=== PATIENT | female | born 1945 | race Caucasian/White ===

== ENCOUNTER → 2020-04-11 12:17 | Outpatient (CLI) | payer MEDICARE, BC, SELFPAY ==
--- NOTE | ~2020-04-11 | MM_ITS ---
EXAMINATION: MM screening [facility] BI w andi HISTORY: Screening mammogram TECHNIQUE: Craniocaudal and mediolateral oblique 3-D tomosynthesis images were obtained and synthetic 2-D images were generated. CAD analysis was submitted and interpreted. COMPARISON: 08/11/2017, 07/24/2014, 07/21/2013 BREAST PARENCHYMAL COMPOSITION: There are scattered areas of fibroglandular density. FINDINGS: There is no evidence of suspicious mass, calcification, or architectural distortion to sugg est malignancy in either breast. There has been no suspicious interval change. IMPRESSION: 1. No mammographic evidence of malignancy. 2. Recommend routine screening mammography in one year. BI-RADS Category 1: Negative Reviewed, dictated and finalized at location A. LING GRADER
== END ==
PROVIDERS: Visit Provider Internal Medicine
DX: Z12.31 Encounter for screening mammogram for malignant neoplasm of breast (principal)
CPT/HCPCS: 77063; 77067

== ENCOUNTER 2020-04-12 14:20 | Outpatient (CLI) | payer MEDICARE, BC, SELFPAY ==
--- NOTE | 2020-04-12 14:46 | ECHO_ITS ---
Patient Info Name: Kanchan Vuong Age: 74 years : 1945 Gender: Female Ht: 64 in Wt: 179 lbs BSA: 1.94 m2 HR: 61 bpm BP: 129 / 86 mmHg Heart Rhythm: Sinus Rhythm Technical Quality: Good Exam Date: 04/12/2020 3:15 PM Exam Location: [facility] Patient Status: Outpatient Admit Date: 04/12/2020 Staff Ordering Physician: Laura Mahoney NP Fine Chemicals Operator: Radha Castro RDCS Attending Provider: Laura Mahoney NP Referring Physician: Maru FAJARDO; Exam Type: CA echo doppler color flow Study Info Indications - dizziness Complete two-dimensional, color flow and Doppler transthoracic echocardiogram is performed. Summary 1. Complete two-dimensional, color flow and Doppler transthoracic echocardiogram is performed. 2. Left ventricular chamber dimension is normal. 3. Left ventricular systolic function is normal, estimated at 60-65%. 4. There is no increased left ventricular wall thickness. 5. Left ventricular septal wall motion is normal. 6. The left ventricular diastolic function is abnormal. 7. Right ventricular chamber dimension is mildly enlarged. 8. There is moderate aortic valve sclerosis. 9. The right coronary cusp is thickened with restricted leaflet mobility. 10. There is mild mitral valve regurgitation. 11. There is mild tricuspid valve regurgitation. 12. Mild pulmonary hypertension, estimated pulmonary arterial systolic pressure is 40 mmHg. Left Ventricle Left ventricular chamber dimension is normal. Left ventricular systolic function is normal, estimated at 60-65%. There is no increased left ventricular wall thickness. Left ventricular septal wall motion is normal. The left ventricular diastolic function is abnormal. Right Ventricle Right ventricular chamber dimension is mildly enlarged. Right ventricular systolic function is normal. Left Atria Left atrial chamber dimension is normal. Right Atria Right atrial chamber dimension is normal. Atrial Septum Suspected patent foramen ovale visualized by color flow imaging. Aortic Valve The aortic valve is trileaflet. There is moderate aortic valve sclerosis. There is no aortic valve stenosis. There is trace aortic valve regurgitation. The right coronary cusp is thickened with restricted leaflet mobility. Pulmonic Valve The pulmonic valve is normal. There is no pulmonic valve stenosis. There is trace pulmonic regurgitation. Mitral Valve The mitral valve has normal leaflets. There is no mitral valve stenosis. There is mild mitral valve regurgitation. Tricuspid Valve The tricuspid valve leaflets are normal. There is no significant tricuspid valve stenosis. There is mild tricuspid valve regurgitation. Mild pulmonary hypertension, estimated pulmonary arterial systolic pressure is 40 mmHg. Pericardium/Pleural The pericardium appears normal. There is no pericardial effusion. Inferior Vena Cava Normal inferior vena cava with >50% collapse upon inspiration consistent with normal right atrial pressure, 10 mmHg. Aorta The aortic root size at the sinus of Valsalva is normal. The prox ascending aorta size is normal. Left Ventricular Outflow Tract Name Value Normal LVOT 2D LVOT Diameter
== END 2020-04-12 14:21 | disposition home or self-care (01) ==
LOC: ANHCARD 14:21
PROVIDERS: PCP Internal Medicine; Visit Provider Nurse Practitioner
DX: R42 Dizziness and giddiness (principal); I08.3 Combined rheumatic disorders of mitral, aortic and tricuspid valves
CPT/HCPCS: 93306

== ENCOUNTER 2020-05-21 08:34 | Outpatient (CLI) | payer MEDICARE, BC, SELFPAY ==
--- NOTE | 2020-06-16 20:46 | WPDHOMESLEEP ---
Sleep Study - Home Unattended Date of Study: 05/21/20 Ordering Provider: Earl Muro MD Interpreting Provider: Julissa Brooks MD Home Sleep Study Type: Apnea Link Air Height: 1.63 m Weight: 81.193 kg Body Mass Index: 30.7 Neck Circumference (inches): 12 [place]: 3 Reason for Sleep Study Diagnosed with obstructive sleep apnea 10 years ago, lost 100 lb and symptoms improved Sleep History Kanchan Vuong is a 75-year-old woman who was diagnosed with sleep apnea about 10 years ago. She lost 100 lb after gastric bypass, and the weight loss led to resolution of her sleep complaints. She occasionally snores, only rarely is at loud enough that others complain about it. She never awakens at night with heartburn, belching or coughing. She never awakens from sleep feeling short of breath. She rarely has trouble sleeping with a cold. She does not wake up gasping for breath at night, does not have breathing problems at night observed by others and does not sweat excessively at night. She occasionally notices her heart pounding or beating irregularly at night. She does not fall asleep during the day, does not fall asleep involuntarily and does not fall asleep while driving. She does not fall asleep while exerting physical effort. She does not have loss of muscle tone was strong emotion. She does not have daytime difficulties due to excessive sleepiness. She is retired. She does not feel paralyzed on waking or falling asleep, does not have vivid dreamlike scenes upon awakening or falling asleep. She is not afraid to go to sleep. She does not have nightmares. She rarely remembers her dreams. She occasionally has racing thoughts. She rarely feels sad or depressed. Frequently has anxiety. Rarely has muscular tension. Rarely notices parts of her body jerking. She does not kick at night although she frequently has crawling and aching feelings in her legs at night. She constantly has leg pains at night. She does not have morning jaw pain. She does not grind her teeth during sleep. She occasionally has bothered by pain during the day. She frequently is awakened by pain at night. She rarely wakes up feeling stiff in the morning with sore achy muscles and rarely has pain in the neck and spine. She has dizziness and concentration difficulties. Normal bedtime is Between 11:00 p.m. and 12 midnight, falling asleep within 15-30 minutes, typically waking 1-3 times at night to use the bathroom. She stays awake for 10-15 minutes. She wakes in the morning at 6:30 a.m.. Weekend schedule is the same. She does not take naps. A short nap is not refreshing. She frequently awakens feeling refreshed. She rarely has a morning headache. She rarely has daytime sleepiness or problems with memory and concentration. Habits: She quit tobacco 34 years ago. Caffeine 3-4 sodas a day. No alcohol or recreational drugs. FORMERLY [facility] Past Medical History Medical History (Updated 06/16/20 @ 20:59 by Julissa Brooks MD) Aortic valve sclerosis Cataract Elevated liver enzymes Gout HTN (hypertension) Hypothyroidism Measles Mumps Osteoarthritis Vitamin D deficiency Surgical History Surgical History (Updated 06/16/20 @ 20:54 by Julissa Brooks MD) H/O cataract extraction History of gastric bypass History of tonsillectomy Family History Family History Mother Family history of lung cancer Hypertension Congestive heart failure Father Coronary artery disease Emphysema lung Social History Social History Smoking status: Former smoker Smoking end date: 04/27/85 Alcohol intake: never Medications Home Medications Medication Instructions Recorded Confirmed Type calcium carbonate 600 mg calcium 600 mg PO DAILY 01/09/20 02/02/20 History (1,500 mg) tablet cholecalciferol (vitamin D3) 25 25 mcg PO DAILY 01/09/20 02/02/20 History
[2020-06-16 21:09] VITALS: BMI 30.7
== END 2020-05-21 08:35 | disposition home or self-care (01) ==
LOC: ANHCSM 08:36
PROVIDERS: Visit Provider Internal Medicine Cardiovascular Disease
DX: G47.33 Obstructive sleep apnea (adult) (pediatric) (principal)
CPT/HCPCS: 95806

== ENCOUNTER 2020-08-06 09:28 | Outpatient (CLI) | payer MEDICARE, BC, SELFPAY ==
--- NOTE | ~2020-08-06 | US_ITS ---
EXAMINATION: US venous doppler LE RT EXAM DATE: 08/06/2020 09:58 INDICATION: Right knee pain. TECHNIQUE: Multiple grayscale, color flow and Doppler images of the right lower extremity deep venous system were obtained and reviewed. There is no prior study for comparison. FINDINGS: The right common femoral, femoral and profunda veins demonstrate normal color flow, respira tory variation, augmentation and compressibility. Compressibility, color flow confirmed within the r ight popliteal, posterior tibial, peroneal, and greater saphenous veins. IMPRESSION: 1. No right lower extremity deep venous thrombosis. Reviewed, dictated and finalized at location A.
== END 2020-08-06 09:29 | disposition home or self-care (01) ==
LOC: ANHIMG 09:30
PROVIDERS: PCP Internal Medicine; Visit Provider Nurse Practitioner
DX: R22.41 Localized swelling, mass and lump, right lower limb (principal); M25.569 Pain in unspecified knee
CPT/HCPCS: 93971

== ENCOUNTER 2021-04-25 14:16 | Emergency (ER) | payer MEDICARE, BC, SELFPAY ==
--- NOTE | ~2021-04-25 | XR_ITS ---
EXAMINATION: XR chest 2V DATE: 04/25/2021 15:36 INDICATION: Cough. TECHNIQUE: Frontal and lateral views of the chest were obtained. COMPARISON: Chest 2 views 02/13/2017 FINDINGS: Calcified lung nodules and calcified hilar and mediastinal lymph nodes are consistent with old granulomatous disease. No pleural effusion or pneumothorax. The heart size is normal. Surgical cl ips in the right upper quadrant are likely from cholecystectomy. IMPRESSION: 1. No acute cardiopulmonary disease. Reviewed, dictated and finalized at location B. OL CURRICULUM DEVELOPER
[2021-04-25 14:47] VITALS: BP 121/53; PULSE 91; RESP 20; TEMP 37.3; O2SAT 99
--- NOTE | 2021-04-25 16:11 | ED.URI ---
HPI - URI/Sore Throat General Chief Complaint: Upper Respiratory Infection Stated Complaint: cough,light headed,dizziness,sob Time Seen by Provider: 04/25/21 16:10 Source: patient and RN notes reviewed Mode of arrival: ambulatory Limitations: no limitations History of Present Illness HPI Narrative: 75-year-old female presents concern for cough, headache, chills, general malaise that started 2 days ago. She reports she is vaccinated for Covid and flu and also has a Covid booster. Reports has been using NyQuil. Shedenies leg swelling, chest pain, shortness of breath, palpitations. Reports nausea. Denies vomiting, diarrhea. MD elicited complaint: cough Related Data Home Medications Medication Instructions Recorded Confirmed calcium carbonate 600 mg calcium 600 mg PO DAILY 01/09/20 04/25/21 (1,500 mg) tablet cholecalciferol (vitamin D3) 25 25 mcg PO DAILY 01/09/20 04/25/21 mcg (1,000 unit) capsule multivitamin 1 tablet PO DAILY 01/09/20 04/25/21 Allergies Allergy/AdvReac Type Severity Reaction Status Date / Time No Known Allergies Allergy Verified 04/25/21 15:30 Review of Systems Review of Systems: CONSTITUTIONAL: Reports malaise, chills. Sweats, or fever. EYES: Denies visual changes, redness, or discharge. ENT: Denies rhinorrhea, congestion, sinus pain, otalgia and sore throat. CARDIOVASCULAR: Denies chest pain, palpitations, or edema. RESPIRATORY: Reports cough. Denies dyspnea. GASTROINTESTINAL: Denies abdominal pain, nausea, vomiting, diarrhea SKIN: Denies rash or itching. MUSCULOSKELETAL: Reports myalgia. NEUROLOGIC: Reports headache. All systems reviewed & are unremarkable except as noted in HPI and below [facility] Past Medical History Medical History Aortic valve sclerosis Cataract Elevated liver enzymes Gout HTN (hypertension) Hypothyroidism Measles Mumps Osteoarthritis Vitamin D deficiency Surgical History Surgical History Gall bladder stones H/O cataract extraction History of appendectomy History of gastric bypass History of hysterectomy History of tonsillectomy Parotid tumor Family History Family History Mother Family history of lung cancer Hypertension Congestive heart failure Father Coronary artery disease Emphysema lung Social History Social History Smoking packs per day: 1 Smoking cigarettes per day: 20.0 Years smoked: 20 Smoking pack-years: 20.00 Smoking status: Former smoker Smoking end date: 04/27/85 Alcohol intake: never Comments At time of signature, agree with nursing past medical, surgical, social and family history. There is no relevant family history pertinent to the presenting complaint Exam Narrative: GENERAL: Well-appearing, well-nourished, and in no acute distress. HEAD: Normocephalic EYES: PERRLA, conjunctivae clear ENT: Nares clear, clear discharge. Mucous membranes moist. TM pearly carroll with sharp light reflex bilaterally; no tragal tenderness. Oropharynx not erythematous without lesions. Tonsils not enlarged and without exudate, no drooling, no hoarseness, no trismus, uvula midline. NECK: Supple. No lymphadenopathy CHEST: Left lower lobe rhonchi, otherwise clear to auscultation, breath sounds equal. No wheezing, rales, or stridor. No respiratory distress, speaks in full sentences. HEART: Regular rate and rhythm. No murmur heard. SKIN: Warm, dry, no rash. NEURO: Alert and oriented x3. PSYCH: Normal mood and affect Course Course Emergency Course: Patient is aware of diagnosis, understands and agrees to treatment plan. Anticipatory guidance given. Patient agrees to follow-up as directed and is aware of reasons to seek care at the emergency department. Portions of this record may have been created with voice recognition so
== END 2021-04-25 16:45 | disposition home or self-care (01) ==
PROVIDERS: Emergency Provider Nurse Practitioner; PCP Internal Medicine
DX: J06.9 Acute upper respiratory infection, unspecified (principal); Z20.822 Contact with and (suspected) exposure to COVID-19; Z87.891 Personal history of nicotine dependence; I35.8 Other nonrheumatic aortic valve disorders; Z98.49 Cataract extraction status, unspecified eye; M10.9 Gout, unspecified; I10 Essential (primary) hypertension; E03.9 Hypothyroidism, unspecified; M19.90 Unspecified osteoarthritis, unspecified site; E55.9 Vitamin D deficiency, unspecified; Z98.84 Bariatric surgery status
CPT/HCPCS: 71046; 87426; 99213; C9803; G0463

== ENCOUNTER → 2021-05-02 12:20 | Outpatient (CLI) | payer MEDICARE, BC, SELFPAY ==
--- NOTE | ~2021-05-02 | MM_ITS ---
EXAMINATION: MM screening [facility] BI w andi HISTORY: Screening mammogram TECHNIQUE: Craniocaudal and mediolateral oblique 3-D tomosynthesis images were obtained and synthetic 2-D images were generated. CAD analysis was submitted and interpreted. COMPARISON: 04/11/2020 08/11/2017, 07/24/2014 BREAST PARENCHYMAL COMPOSITION: There are scattered areas of fibroglandular density. FINDINGS: There is no evidence of suspicious mass, calcification, or architectural distortion to sugg est malignancy in either breast. There has been no suspicious interval change. IMPRESSION: 1. No mammographic evidence of malignancy. 2. Recommend routine screening mammography in one year. BI-RADS Category 1: Negative Reviewed, dictated and finalized at location A. E TRIAGE SPECIALIST
== END ==
PROVIDERS: PCP Internal Medicine; Visit Provider Internal Medicine
DX: Z12.31 Encounter for screening mammogram for malignant neoplasm of breast (principal)
CPT/HCPCS: 77063; 77067

== ENCOUNTER 2022-01-31 18:34 | Emergency (ER) | payer BC, MEDICARE, SELFPAY ==
--- NOTE | ~2022-01-31 | XR_ITS ---
EXAMINATION: XR chest 2V 01/31/2022 19:20 INDICATION: Productive cough PROCEDURE: 2 view chest COMPARISON: 04/25/2021 FINDINGS: The lungs are clear. The cardiomediastinal silhouette is within normal limits. There are no pleural effusions. There is no pneumothorax suspected. IMPRESSION: 1: NO ACUTE CARDIOPULMONARY DISEASE. Reviewed, dictated and finalized at location A.
[2022-01-31 18:46] VITALS: BP 139/74; PULSE 108; RESP 16; TEMP 38.6; O2SAT 96
--- NOTE | 2022-01-31 19:04 | ED.URI ---
HPI - URI/Sore Throat General Chief Complaint: Upper Respiratory Infection Stated Complaint: Cough, SOB Time Seen by Provider: 01/31/22 19:04 Source: patient and RN notes reviewed Mode of arrival: ambulatory Limitations: no limitations History of Present Illness HPI Narrative: 76-year-old female presents to the [facility] with complaints of cough and shortness of breath days. Reports a chest cold, body aches and fatigue. Also reports left ear pain. Had taken some DayQuil today. Where she had a fever. Patient appears acutely ill Related Data Home Medications Medication Instructions Recorded Confirmed calcium carbonate 600 mg calcium 600 mg PO DAILY 01/09/20 09/13/21 (1,500 mg) tablet (Calcium) cholecalciferol (vitamin D3) 25 25 mcg PO DAILY 01/09/20 09/13/21 mcg (1,000 unit) capsule multivitamin 1 tablet PO DAILY 01/09/20 09/13/21 levothyroxine 75 mcg tablet 75 mcg PO DAILY 09/04/21 09/13/21 (Synthroid) Allergies Allergy/AdvReac Type Severity Reaction Status Date / Time No Known Allergies Allergy Verified 04/25/21 15:30 Review of Systems Review of Systems: All systems reviewed & are unremarkable except as noted in HPI and below Constitutional: Constitutional: Reports as per HPI, Denies chills, Reports fatigue and Denies fever(s) Eyes: Eyes: Reports no additional eye complaints ENT: Reports as per HPI (Left ear pain) Cardiovascular: Cardiovascular: Reports no additional cardiovascular complaints Respiratory: Respiratory: Reports as per HPI, Reports chest congestion, Reports cough and Reports dyspnea Gastrointestinal: Gastrointestinal: Reports no additional gastrointestinal complaints Musculoskeletal: Musculoskeletal: Reports no additional musculoskeletal complaints Integumentary/Breasts: Skin/Breast: Reports system reviewed and no additional complaints, except as docu Neurologic: Reports system reviewed and no additional complaints, except as documented Psychiatric: Psychiatric: Reports no additional psychiatric complaints Allergic/Immunologic: Allergic/Immunologic: Reports no additional allergic/immunologic complaints [facility] Past Medical History Medical History Aortic valve sclerosis Cataract Elevated liver enzymes Gout HTN (hypertension) Hypothyroidism Measles Mumps Osteoarthritis Vitamin D deficiency Surgical History Surgical History Gall bladder stones H/O cataract extraction History of appendectomy History of gastric bypass History of hysterectomy History of tonsillectomy Parotid tumor Family History Family History Mother Family history of lung cancer Hypertension Congestive heart failure Father Coronary artery disease Emphysema lung Social History Social History Smoking packs per day: 1 Smoking cigarettes per day: 20.0 Years smoked: 20 Smoking pack-years: 20.00 Smoking status: Never smoker Smoking end date: 04/27/85 Alcohol intake: never Comments At the time of my signature, I reviewed and agree with the nursing past medical, surgical, social, and family history. There is no relevant family history pertinent to the patient complaint. Exam Const: General: no acute distress, alert, ill appearing acutely (mild) and well nourished Nutritional Appearance: well nourished Orientation/consciousness: patient oriented x3 Limitations: no limitations HENMT: Head: normal to inspection Ears: external ears normal, TM's normal bilaterally and EAC's normal Face/Nose/Sinus: Normal external nose present and Normal nares present Eyes: General: appearance normal, both eyes and all related structures Pupils: Equal, round and reactive pupils present Neck: Neck: normal visual inspection, no lymphadenopathy and no meningeal signs Chest: Chest
[2022-01-31 19:19] VITALS: TEMP 38.3
[2022-01-31] MEDS: ACETAMINOPHEN 500 MG TABLET 1000 MG PO (19:19)
--- NOTE | 2022-01-31 19:45 | PC.NURSE ---
Recheck 100.0 92-20 [id number]
--- NOTE | 2022-01-31 19:49 | ECG_ITS ---
Measurements Intervals [place] Rate: 93 P: 74 W[place]: 162 QRS: 72 QRSD: 137 T: 43 QT: 361 QTc: 451 Interpretive Statements SINUS RHYTHM RIGHT BUNDLE BRANCH BLOCK [120+ ms QRS DURATION, UPRIGHT V1, 40+ ms S IN I/aVL/V4/V5/V6] ABNORMAL ECG NO PREVIOUS ECG AVAILABLE FOR COMPARISON Electronically Signed On 02-01-2022 7:55:29 CDT by Yahir Figueroa M.D.
--- NOTE | 2022-01-31 19:53 | PC.NURSE ---
EKG was done at 1925
== END 2022-01-31 19:55 | disposition home or self-care (01) ==
PROVIDERS: Emergency Provider Nurse Practitioner; PCP Internal Medicine
DX: J06.9 Acute upper respiratory infection, unspecified (principal); J20.9 Acute bronchitis, unspecified; Z98.49 Cataract extraction status, unspecified eye; Z20.822 Contact with and (suspected) exposure to COVID-19; I45.10 Unspecified right bundle-branch block; F17.210 Nicotine dependence, cigarettes, uncomplicated; I10 Essential (primary) hypertension; E03.9 Hypothyroidism, unspecified; M19.90 Unspecified osteoarthritis, unspecified site; E55.9 Vitamin D deficiency, unspecified; M10.9 Gout, unspecified; I35.0 Nonrheumatic aortic (valve) stenosis; Z98.84 Bariatric surgery status
CPT/HCPCS: 71046; 87426; 87804; 93005; 99213; A9270; C9803; G0463

== ENCOUNTER 2022-02-21 12:35 | Emergency (ER) | payer BC, MEDICARE, SELFPAY ==
[2022-02-21 12:41] VITALS: BP 126/58; PULSE 85; RESP 14; TEMP 36.3; O2SAT 99
[2022-02-21 13:34] LABS: Basophils Percent Auto 0.6 % (0.2-1.2); Eosinophils Absolute Auto 0.1 K/mm3 (0-0.3); Eosinophils Percent Auto 2.5 % (0-4.4); Immature Granulocyte Absolute 0.01 K/mm3 (0.00-0.031); Immature Granulocyte Percent A 0.2 % (0-0.5); Lymphocytes Absolute Auto 1.63 K/mm3 (0.9-3.2); Lymphocytes Percent Auto 33.8 % (18.3-44.2); Mean Corpuscular HGB Conc 31.7 g/dl (32-36); Mean Corpuscular Hemoglobin 29.2 pg (26-34); Mean Corpuscular Volume 92.1 fl (80-100); Mean Platelet Volume 9.2 fl (7.4-10.4); Monocytes Absolute Auto 0.5 K/mm3 (0.1-0.6); Monocytes Percent Auto 10.4 % (2.6-8.5); Neutrophils Absolute Auto 2.5 K/mm3 (1.3-6.7); Neutrophils Percent Auto 52.5 % (45.5-73.1); Platelet Count Result 262 k/mm3 (150-375); Red Blood Count 4.45 M/mm3 (4.2-5.4); Red Cell Distribution Width 13.8 % (11.5-14.5); White Blood Count 4.8 K/mm3 (4.5-10.0)
[2022-02-21 13:40] LABS: Appearance Urine Clear (Clear); Bilirubin Urine 1+ (Negative); Blood Urine Negative (Negative); Color Urine Yellow (Yellow); Glucose Urine UA Negative (Negative); Ketones Urine Trace mg/dL (Negative); Leukocyte Esterase Ur Negative LEU/UL (Negative); Nitrate Urine Negative (Negative); Protein Urine 1+ mg/dL (Negative); Specific Grav Ur 1.025 (1.001-1.035); Urobilinogen Urine 0.2 mg/dL (<2.0); pH Urine 5.5 (5.0-9.0)
[2022-02-21 13:49] LABS: Alanine Aminotransferase 15 U/L (6-35); Alkaline Phosphatase 79 U/L (38-126); Anion Gap 14 mmol/L (8-16); Aspartate Amino Transferase 19 U/L (14-36); Bilirubin,Total 0.6 mg/dL (0.2-1.3); Blood Urea Nitrogen 24 mg/dL (7-17); Calcium 9.3 mg/dL (8.4-10.2); Carbon Dioxide 22 mmol/L (22-30); Chloride 105 mmol/L (98-107); Estimated CRCL calculation 33 ml/min; Estimated Glomerular Filt Rate 44; Glucose 91 mg/dL (65-110); Lipase 61 U/L (23-300); Potassium 3.2 mmol/L (3.4-5.0); Sodium 141 mmol/L (137-145)
[2022-02-21] MEDS: SODIUM CHLORIDE 0.9% IV 1,000 ML 999 ML IV CONT (14:57)
--- NOTE | 2022-02-21 15:28 | ED.NAVMDI ---
HPI - Nausea/Vomiting/Diarrhea General Chief complaint: Nausea/Vomiting/Diarrhea Stated complaint: diarrhea since thursday, Time Seen by Provider: 02/21/22 14:11 History of Present Illness HPI Narrative: Patient is a 76-year-old female who presents ER with concerns for dehydration. 3 days ago she was having nausea and vomiting as well as diarrhea. She was going to bathroom every 15 minutes. She was having evacuation of yellow contents. She did not see solid body ways. She began drinking yesterday and started having some clear stool and had some food which created some normal appearing stools as well. She reports she started to get dizzy with going from sitting to standing today and her doctor recommended she come be evaluated. She reports her illness is significantly improved. She has no localizing abdominal pain. No history of diverticulitis. Related Data Home Medications Medication Instructions Recorded Confirmed calcium carbonate 600 mg calcium 600 mg PO DAILY 01/09/20 09/13/21 (1,500 mg) tablet (Calcium) cholecalciferol (vitamin D3) 25 25 mcg PO DAILY 01/09/20 09/13/21 mcg (1,000 unit) capsule multivitamin 1 tablet PO DAILY 01/09/20 09/13/21 levothyroxine 75 mcg tablet 75 mcg PO DAILY 09/04/21 09/13/21 (Synthroid) Allergies Allergy/AdvReac Type Severity Reaction Status Date / Time No Known Allergies Allergy Verified 02/21/22 15:02 Review of Systems Review of Systems: All systems reviewed & are unremarkable except as noted in HPI and below Constitutional: Constitutional: Denies chills, Denies fatigue and Denies fever(s) ENT: Denies nasal congestion and Denies sore throat Cardiovascular: Cardiovascular: Denies chest pain and Denies radiating jaw, neck or arm pain Respiratory: Respiratory: Denies cough, Denies dyspnea and Denies wheezing Gastrointestinal: Gastrointestinal: Denies abdominal pain, Reports diarrhea, Reports nausea and Reports vomiting Genitourinary: Genitourinary: Denies nocturia and Denies dysuria [facility] Past Medical History Medical History Aortic valve sclerosis Cataract Elevated liver enzymes Gout HTN (hypertension) Hypothyroidism Measles Mumps Osteoarthritis Vitamin D deficiency Surgical History Surgical History Gall bladder stones H/O cataract extraction History of appendectomy History of gastric bypass History of hysterectomy History of tonsillectomy Parotid tumor Family History Family History Mother Family history of lung cancer Hypertension Congestive heart failure Father Coronary artery disease Emphysema lung Social History Social History Smoking packs per day: 1 Smoking cigarettes per day: 20.0 Years smoked: 20 Smoking pack-years: 20.00 Smoking status: Never smoker Smoking end date: 04/27/85 Alcohol intake: never Exam Narrative: GENERAL: Well-appearing, well-nourished, and in no acute distress. HEAD: Normocephalic, atraumatic. EYES: PERRL and EOMI. ENT: Mucous membranes moist. CHEST: Clear to auscultation. No respiratory distress. HEART: Regular rate and rhythm. Normal peripheral pulses. ABDOMEN: Soft, nontender, nondistended. EXTREMITIES: Normal range of motion. No edema. SKIN: Warm, dry, no rash. NEURO: Alert and oriented x3. PSYCH: Normal mood and affect. Course Course Emergency Course: Resting comfortably. Hydrated. Discharge home. Vital Signs Vital signs: Vital Signs Temperature 97.3 F L 02/21/22 12:41 Pulse Rate 85 02/21/22 12:41 Respiratory Rate 14 02/21/22 12:41 Blood Pressure 126/58 L 02/21/22 12:41 Pulse Oximetry 99 02/21/22 12:41 Oxygen Delivery Room Air 02/21/22 12:41 Temperature 97.3 F L 02/21/22 12:41 Pulse Rate 85 02/21/22 12:41 Respiratory Rate 14 1
[2022-02-21 15:43] LABS: Calcium Oxalate Crystals Urine Many /hpf; Mucus Urine Few /lpf; RBC Urine 51-75 /hpf (0-2); Squamous Epithelial Cell Urine Occasional /hpf (Few)
[2022-02-21 15:49] LABS: Add Urine Microscopic? YES
[2022-02-21 16:24] VITALS: BP 127/77; PULSE 77; RESP 16; TEMP 36.7; O2SAT 98
== END 2022-02-21 16:38 | disposition home or self-care (01) ==
PROVIDERS: Emergency Medicine; Emergency Provider Emergency Medicine; PCP Internal Medicine
DX: E86.0 Dehydration (principal); I10 Essential (primary) hypertension; E03.9 Hypothyroidism, unspecified; F17.210 Nicotine dependence, cigarettes, uncomplicated
CPT/HCPCS: 36415; 80053; 81001; 83690; 85025; 87086; 96360; 99283; J7030

== ENCOUNTER → 2022-07-16 14:02 | Outpatient (CLI) | payer MEDICARE, BC, SELFPAY ==
--- NOTE | ~2022-07-16 | MM_ITS ---
EXAMINATION: MM screening [facility] BI w andi HISTORY: Screening TECHNIQUE: Craniocaudal and mediolateral oblique 3-D tomosynthesis images were obtained and synthetic 2-D images were generated. CAD analysis was submitted and interpreted. COMPARISON: Comparison to multiple prior studies sequentially, with oldest reviewed study dated 07/21. BREAST PARENCHYMAL COMPOSITION: There are scattered areas of fibroglandular density. FINDINGS: There is no evidence of suspicious mass, calcification, or architectural distortion to sugg est malignancy in either breast. There has been no suspicious interval change. IMPRESSION: 1. No mammographic evidence of malignancy. 2. Recommend routine screening mammography in one year. BI-RADS Category 1: Negative Reviewed, dictated and finalized at location A.
== END ==
PROVIDERS: PCP Internal Medicine; Visit Provider Internal Medicine
DX: Z12.31 Encounter for screening mammogram for malignant neoplasm of breast (principal)
CPT/HCPCS: 77063; 77067

== ENCOUNTER 2022-11-05 08:01 | Outpatient (CLI) | payer MEDICARE, BC, SELFPAY ==
--- NOTE | ~2022-11-05 | MM_ITS ---
EXAMINATION: MM diagnostic [facility] RT w andi HISTORY: Recent right breast pain, currently resolved TECHNIQUE: ML, MLO and CC 3-D tomosynthesis images of the right breast were performed and synthetic 2 -D images were generated. CAD analysis was submitted and interpreted. COMPARISON: 07/16/2022, 05/02/2021, 04/11/2000bilateral screening mammogram examinations BREAST PARENCHYMAL COMPOSITION: There are scattered areas of fibroglandular density. FINDINGS: No suspicious mass or architectural distortion, malignant calcification, skin thickening or retraction or significant new or developing density is detected. IMPRESSION: 1. No mammographic evidence of malignancy 2. Routine mammographic screening is recommended BI-RADS Category 1: Negative Reviewed, dictated and finalized at location A.
== END 2022-11-05 08:02 ==
LOC: MICIMG 08:02
PROVIDERS: PCP Nurse Practitioner Obstetrics & Gynecology; Visit Provider Nurse Practitioner Obstetrics & Gynecology
DX: N64.4 Mastodynia (principal)
CPT/HCPCS: 77061; 77065; G0279

== ENCOUNTER → 2023-02-10 08:11 | Outpatient (CLI) | payer MEDICARE, BC, SELFPAY ==
--- NOTE | ~2023-02-10 | CT_ITS ---
EXAMINATION: CT foot LT wo con DATE: 02/10/2023 08:30 INDICATION: Closed fracture of the medial cuneiform of the left foot. TECHNIQUE: High resolution computed tomography (CT) of the left foot was performed without intravenou s contrast. Additional sagittal and coronal reconstructions were performed. Automated exposure contro l and iterative reconstruction technique were employed. The dose-length product was 160.74 mGy-cm. COMPARISON: None FINDINGS: Nondisplaced avulsion fracture along the lateral margin of the anterior process of the calcaneus. No other definitive fractures identified. Alignment remains essentially anatomic. Mild polyarticular ost eoarthritis at the left foot and ankle most prominent at the first metatarsophalangeal and interphala ngeal joints and at the ankle and medial naviculocuneiform articulations with mild subarticular cystl shanique change at the medial rim of the talar dome and proximal articular surface of the medial cuneiform . No ankle joint effusion. Achilles tendinosis with large enthesophyte at its calcaneal insertion. Sm all plantar calcaneal spur. IMPRESSION: 1. Nondisplaced small avulsion fracture along the lateral margin of the anterior process of the calca neus. 2. No other fractures identified. If there is continued clinical concern for a cuneiform fracture and this would alter clinical management could consider further more sensitive evaluation with MRI. 3. 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 Reviewed, dictated and finalized at location A. IMPRESSION: 1. Nondisplaced small avulsion fracture along the lateral margin of the anterio r process of the calcaneus. 2. No other fractures identified. If there is continued clinical concern for a cuneiform fracture and this would alter clinical management could consider furt her more sensitive evaluation with MRI. 3. 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
== END ==
PROVIDERS: PCP Podiatrist Foot & Ankle Surgery; Visit Provider Podiatrist Foot & Ankle Surgery
DX: S92.245A Nondisplaced fracture of medial cuneiform of left foot, initial encounter for closed fracture (principal); X58.XXXA Exposure to other specified factors, initial encounter
CPT/HCPCS: 73700

== ENCOUNTER 2023-07-28 14:56 | Outpatient (CLI) | payer MEDICARE, BC, SELFPAY ==
--- NOTE | ~2023-07-28 | MM_ITS ---
EXAMINATION: MM screening jia BI w andi HISTORY: Screening TECHNIQUE: Craniocaudal and mediolateral oblique 3-D tomosynthesis images were obtained and synthetic 2-D images were generated. CAD analysis was submitted and interpreted. COMPARISON: Comparison to multiple prior studies sequentially, with oldest reviewed study dated 07/24. BREAST PARENCHYMAL COMPOSITION: There are scattered areas of fibroglandular density. FINDINGS: There is no evidence of suspicious mass, calcification, or architectural distortion to sugg est malignancy in either breast. There has been no suspicious interval change. IMPRESSION: 1. No mammographic evidence of malignancy. 2. Recommend routine screening mammography in one year. BI-RADS Category 1: Negative Reviewed, dictated and finalized at location A.
== END 2023-07-28 14:57 ==
LOC: MICIMG 14:58
PROVIDERS: PCP Nurse Practitioner; Visit Provider Nurse Practitioner
DX: Z12.31 Encounter for screening mammogram for malignant neoplasm of breast (principal)
CPT/HCPCS: 77063; 77067

== ENCOUNTER 2023-09-19 08:26 | Emergency (ER) | payer MEDICARE, BC, SELFPAY ==
--- NOTE | 2023-09-19 08:27 | ED.GENADULT ---
HPI - General Adult General Chief complaint: Upper Respiratory Infection Stated complaint: SOB/Cough/UTI Time Seen by Provider: 09/19/23 08:47 Source: patient, RN notes reviewed and old records reviewed Mode of arrival: ambulatory Limitations: no limitations History of Present Illness HPI narrative: 78-year-old female presents to the [facility] with complaints 2 day history of headache, chest tightness, chest heaviness, cough and shortness of breath. Patient states that started on , has been laying in bed. Also concerned that she has had decreased urine output as well as dark urine and foul-smelling. Denies any abdominal pain. Does report a low-grade fever Has a history hypertension, right bundle branch block, gastric bypass, gout, hypothyroidism Onset (ago): day(s) (2) Related Data Home Medications Medication Instructions Recorded Confirmed calcium carbonate (Calcium 600) 600 mg PO DAILY 01/09/20 09/19/23 multivitamin 1 tablet PO DAILY 01/09/20 09/19/23 cholecalciferol (vitamin D3) 50 50 mcg PO DAILY 08/18/23 09/19/23 mcg (2,000 unit) capsule Allergies Allergy/AdvReac Type Severity Reaction Status Date / Time No Known Allergies Allergy Verified 09/19/23 08:30 Review of Systems Review of Systems: All systems reviewed & are unremarkable except as noted in HPI and below Constitutional: Constitutional: Reports as per HPI, Reports fatigue, Reports fever(s) (Reports low-grade) and Reports lethargy Eyes: Eyes: Reports no additional eye complaints ENT: Reports system reviewed and no additional complaints, except as documented Cardiovascular: Cardiovascular: Reports as per HPI, Reports chest pain (Heaviness and tightness), Denies leg edema and Reports dyspnea Respiratory: Respiratory: Denies chest congestion, Denies cough and Reports dyspnea Gastrointestinal: Gastrointestinal: Reports no additional gastrointestinal complaints, Denies abdominal pain, Denies nausea and Denies vomiting Genitourinary: Genitourinary: Reports as per HPI Musculoskeletal: Musculoskeletal: Reports no additional musculoskeletal complaints Integumentary/Breasts: Skin/Breast: Reports system reviewed and no additional complaints, except as docu Neurologic: Reports system reviewed and no additional complaints, except as documented Psychiatric: Psychiatric: Reports no additional psychiatric complaints Allergic/Immunologic: Allergic/Immunologic: Reports no additional allergic/immunologic complaints PMFSH Past Medical History Medical History Aortic valve sclerosis Cataract Elevated liver enzymes Gout HTN (hypertension) Hypothyroidism Measles Mumps Osteoarthritis Vitamin D deficiency Surgical History Surgical History Gall bladder stones H/O cataract extraction History of appendectomy History of gastric bypass History of hysterectomy History of tonsillectomy Parotid tumor Family History Family History Mother Family history of lung cancer Hypertension Congestive heart failure Father Coronary artery disease Emphysema lung Social History Social History (Updated 09/19/23 @ 08:32 by Helen Cuello APRN) Smoking packs per day: 1 Smoking cigarettes per day: 20.0 Years smoked: 20 Smoking pack-years: 20.00 Smoking status: Former smoker Smoking end date: 04/27/85 Alcohol intake: never Do You Feel Safe in your Home?: Yes Lack of Transportation: No Lack of Food: Never True Current Housing: I Have Housing Concerned About Future Housing: No Difficulty Paying Gas/Electric Bills: No Difficulty Paying for Meds: No Currently Unemployed: No Education: High School Diploma/GED Difficulty w/ Childcare or Family Care: No Comments At the time of my signature, I reviewed and agree with the nursing past medical, surgical, social,
[2023-09-19 08:43] VITALS: BP 144/55; PULSE 97; RESP 22; TEMP 36.8; O2SAT 98
== END 2023-09-19 09:05 | disposition short-term general hospital (02) ==
PROVIDERS: Emergency Provider Nurse Practitioner; PCP Internal Medicine
DX: R07.9 Chest pain, unspecified (principal); R34 Anuria and oliguria; Z20.822 Contact with and (suspected) exposure to COVID-19; Z87.891 Personal history of nicotine dependence; I25.10 Atherosclerotic heart disease of native coronary artery without angina pectoris; M10.9 Gout, unspecified; I10 Essential (primary) hypertension; E03.9 Hypothyroidism, unspecified; M19.90 Unspecified osteoarthritis, unspecified site; E55.9 Vitamin D deficiency, unspecified; Z98.84 Bariatric surgery status
CPT/HCPCS: 87426; 87804; 99213; G0463

== ENCOUNTER 2023-09-19 09:16 | Emergency (ER) | payer MEDICARE, BC, SELFPAY ==
[2023-09-19] VITALS (12 sets, daily range): BP systolic 143–169; BP diastolic 55–73; PULSE 84–95; RESP 18–28; TEMP 36.9; O2SAT 92–99
--- NOTE | ~2023-09-19 | XR_ITS ---
EXAMINATION: XR chest 2V DATE: 09/19/2023 10:02 INDICATION: Cough. TECHNIQUE: Frontal and lateral views of the chest were obtained. COMPARISON: Chest 2 views 01/31/2022 FINDINGS: There is no pneumonia, pleural effusion, or pneumothorax. The heart size is normal. Calcifi ed right hilar and mediastinal lymph nodes are consistent with old granulomatous disease. IMPRESSION: 1. No acute cardiopulmonary disease. Reviewed, dictated and finalized at location A.
--- NOTE | 2023-09-19 09:39 | ECG_ITS ---
SEE SCANNED COPY FOR CONFIRMED REPORT MTDD
[2023-09-19 09:48] LABS: Basophils Absolute Auto 0.1 K/mm3 (0.0-0.1); Basophils Percent Auto 0.5 % (0.2-1.2); Eosinophils Absolute Auto 0.1 K/mm3 (0-0.3); Hematocrit 41.6 % (37.0-47.0); Hemoglobin 13.3 g/dL (12.0-15.0); Immature Granulocyte Absolute 0.02 K/mm3 (0.00-0.031); Immature Granulocyte Percent A 0.2 % (0-0.5); Lymphocytes Absolute Auto 1.17 K/mm3 (0.9-3.2); Lymphocytes Percent Auto 11.1 % (18.3-44.2); Mean Corpuscular Hemoglobin 29.8 pg (26-34); Mean Corpuscular Volume 93.3 fl (80-100); Mean Platelet Volume 9.1 fl (7.4-10.4); Monocytes Absolute Auto 0.8 K/mm3 (0.1-0.6); Monocytes Percent Auto 7.2 % (2.6-8.5); Neutrophils Absolute Auto 8.4 K/mm3 (1.3-6.7); Platelet Count Result 332 k/mm3 (150-375); Red Blood Count 4.46 M/mm3 (4.2-5.4); Red Cell Distribution Width 13.3 % (11.5-14.5); White Blood Count 10.5 K/mm3 (4.5-10.0)
[2023-09-19 09:59] LABS: Alanine Aminotransferase 17 U/L (6-35); Albumin Level 4.2 g/dL (3.5-5.1); Alkaline Phosphatase 139 U/L (38-126); Anion Gap 7 mmol/L (4-12); Aspartate Amino Transferase 22 U/L (14-36); Bilirubin,Total 0.9 mg/dL (0.2-1.3); Blood Urea Nitrogen 13 mg/dL (7-17); Calcium 9.5 mg/dL (8.4-10.2); Carbon Dioxide 26 mmol/L (22-30); Chloride 106 mmol/L (98-107); Estimated CRCL calculation 54 ml/min; Estimated Glomerular Filt Rate > 60; Glucose 102 mg/dL (65-110); Sodium 139 mmol/L (137-145)
--- NOTE | 2023-09-19 10:23 | ED.URI ---
HPI - URI/Sore Throat General Chief Complaint: Upper Respiratory Infection Stated Complaint: cough and chest pain Time Seen by Provider: 09/19/23 10:01 History of Present Illness HPI Narrative: Patient is a 78-year-old female with history of hypertension, aortic valve disease here with a fever and cough. Patient states that symptoms began 2 days ago. She describes a intermittently productive cough of green sputum associated with diffuse body myalgias and a headache. She has been taking some Tylenol and NyQuil at home, last doses were last night, minimal improvement of her symptoms. She has an associated midsternal chest heaviness whenever she is coughing. She denies any prior history of coronary artery disease. She has also been experiencing some shortness of breath. The only possible sick contacts she has with about 2 weeks ago when she attended kindergarten graduation. Finally she is complaining of a very dark strong smelling urine which began yesterday. She states she has spent the majority of the last 2 days in bed with little p.o. intake and activity. Her fevers at home been ranging 103 F to 101.5 F. They did go to an urgent care today, they referred her here to the emergency department for further testing. Related Data Home Medications Medication Instructions Recorded Confirmed calcium carbonate (Calcium 600) 600 mg PO DAILY 01/09/20 09/19/23 multivitamin 1 tablet PO DAILY 01/09/20 09/19/23 cholecalciferol (vitamin D3) 50 50 mcg PO DAILY 08/18/23 09/19/23 mcg (2,000 unit) capsule Allergies Allergy/AdvReac Type Severity Reaction Status Date / Time No Known Allergies Allergy Verified 09/19/23 08:30 Review of Systems Review of Systems: All systems reviewed & are unremarkable except as noted in HPI and below [facility] Past Medical History Medical History Aortic valve sclerosis Cataract Elevated liver enzymes Gout HTN (hypertension) Hypothyroidism Measles Mumps Osteoarthritis Vitamin D deficiency Surgical History Surgical History Gall bladder stones H/O cataract extraction History of appendectomy History of gastric bypass History of hysterectomy History of tonsillectomy Parotid tumor Family History Family History Mother Family history of lung cancer Hypertension Congestive heart failure Father Coronary artery disease Emphysema lung Social History Social History (Updated 09/19/23 @ 08:32 by Helen Cuello APRN) Smoking packs per day: 1 Smoking cigarettes per day: 20.0 Years smoked: 20 Smoking pack-years: 20.00 Smoking status: Former smoker Smoking end date: 04/27/85 Alcohol intake: never Do You Feel Safe in your Home?: Yes Lack of Transportation: No Lack of Food: Never True Current Housing: I Have Housing Concerned About Future Housing: No Difficulty Paying Gas/Electric Bills: No Difficulty Paying for Meds: No Currently Unemployed: No Education: High School Diploma/GED Difficulty w/ Childcare or Family Care: No Exam Narrative: GENERAL: Well-appearing, well-nourished, and in no acute distress. Actively coughing throughout exam HEAD: Normocephalic, atraumatic. EYES: PERRLA and EOMI. ENT: Nares clear. Mucous membranes moist. NECK: Supple. CHEST: Faint coarseness on expiration however most respiratory attempts are cut short by coughing which limits auscultation. No respiratory distress. HEART: Regular rate and rhythm. Normal peripheral pulses. ABDOMEN: Soft, nontender, nondistended. EXTREMITIES: Normal range of motion. No edema. SKIN: Warm, dry, no rash. NEURO: No focal deficits. Alert and oriented x3. PSYCH: Normal mood and affect. Course Course Emergency Course: Chart review performed. Patient here with a cough x 2 days. Sent from urgent care to rule out pneumonia. Able t
[2023-09-19 10:24] LABS: Influenza A QL RT-PCR Negative (Negative); Influenza B QL RT-PCR Negative (Negative); RSV RNA, RT-PCR Negative (Negative); SARS-CoV-2 RNA PCR Negative (Negative)
[2023-09-19 11:18] LABS: NT Pro B Type Natriuretic Pept 480 pg/mL (19.9-100)
[2023-09-19 11:21] LABS: Troponin I < 0.012 ng/mL (0.000-0.034)
[2023-09-19] MEDS: LACTATED RINGERS 1,000 ML 999 ML IV CONT (11:55)
[2023-09-19] MEDS: ACETAMINOPHEN 500 MG TABLET 1000 MG PO (11:56)
--- NOTE | 2023-09-19 13:32 | ECG_ITS ---
SEE SCANNED COPY FOR CONFIRMED REPORT MTDD
[2023-09-19 14:03] LABS: Troponin I < 0.012 ng/mL (0.000-0.034)
[2023-09-19 14:22] LABS: Appearance Urine Cloudy (Clear); Bacteria Urine 1+ /hpf; Bilirubin Urine Negative (Negative); Blood Urine 2+ (Negative); Color Urine Dark Yellow (Yellow); Glucose Urine UA Negative (Negative); Ketones Urine 3+ mg/dL (Negative); Leukocyte Esterase Ur 2+ LEU/UL (Negative); Need Manual Microscopic Reviewed; Nitrate Urine Positive (Negative); Non Pathogenic Casts 0-2; Protein Urine Trace mg/dL (Negative); Specific Grav Ur 1.023 (1.001-1.035); Squamous Epithelial Cell Urine Occasional /hpf (Few); WBC Urine 51-100 /hpf (0-3); pH Urine 5.5 (5.0-9.0)
[2023-09-19 14:28] LABS: Add Urine Microscopic? YES
== END 2023-09-19 15:30 | disposition home or self-care (01) ==
PROVIDERS: Emergency Medicine; Emergency Provider Student in an Organized Health Care Education/Training Program; PCP Internal Medicine
DX: N39.0 Urinary tract infection, site not specified (principal); J18.9 Pneumonia, unspecified organism; Z20.822 Contact with and (suspected) exposure to COVID-19; I10 Essential (primary) hypertension; E03.9 Hypothyroidism, unspecified; M19.90 Unspecified osteoarthritis, unspecified site; Z98.84 Bariatric surgery status; Z90.710 Acquired absence of both cervix and uterus; R06.02 Shortness of breath
CPT/HCPCS: 36415; 71046; 80053; 81001; 83735; 83880; 84484; 85025; 87077; 87086; 87088; 87186; 87426; 87637; 87804; 93005; 96360; 99284; A9270; J7120

== ENCOUNTER 2023-11-05 02:15 | Day surgery (SDC) | payer MEDICARE, BC, SELFPAY ==
[2023-10-23 11:37] VITALS: BMI 28.6
[2023-11-05 07:42] VITALS: BP 134/58; PULSE 76; RESP 20; TEMP 35.9; O2SAT 98; BMI 28.4
[2023-11-05] MEDS: LACTATED RINGERS 1,000 ML 150 ML IV CONT (07:56)
--- NOTE | 2023-11-05 08:25 | WPDANESEPPF ---
Anes - Initial Pre Proc Eval Procedure: Operation Date: 11/05/23 09:00 Proposed Procedures p Colonoscopy - Gerardo Ashton MD Date/Time: 11/05/23 08:25 Surgeon: Gerardo Ashton MD Pre Op Diagnosis: other fecal abnormalities, Family history malignan Patient Data Age: 78 Gender: F Height: 1.57 m Weight: 70.5 kg Last Vital Signs Temp 96.6 F L 11/05/23 07:42 Pulse 76 11/05/23 07:42 Resp 20 11/05/23 07:42 BP 134/58 L 11/05/23 07:42 Pulse Ox 98 11/05/23 07:42 O2 Del Method Room Air 11/05/23 07:42 Allergies Allergy/AdvReac Type Severity Reaction Status Date / Time No Known Allergies Allergy Verified 11/05/23 07:41 Home Medications Medication Instructions Recorded Confirmed Type calcium carbonate (Calcium 600) 600 mg PO DAILY 01/09/20 11/05/23 History multivitamin 1 tablet PO DAILY 01/09/20 11/05/23 History allopurinol 100 mg tablet See Rx Instructions .Route 10/14/21 11/05/23 Rx .COMPLEX #90 tabs losartan 50 mg tablet See Rx Instructions .Route 10/14/21 11/05/23 Rx .COMPLEX #90 tabs Synthroid 100 mcg tablet 100 mcg PO DAILY #90 tabs 08/18/23 11/05/23 Rx (levothyroxine) amlodipine 10 mg tablet See Rx Instructions .Route 08/18/23 11/05/23 Rx .COMPLEX #90 tabs cholecalciferol (vitamin D3) 50 50 mcg PO DAILY 08/18/23 11/05/23 History mcg (2,000 unit) capsule Patient hx anesthesia problems: none Family hx anesthesia problems: none Results Review: All pre-operative results and documents have been reviewed as part of the pre-operative evaluation. [facility] Past Medical History Medical History Aortic valve sclerosis Cataract Elevated liver enzymes Gout HTN (hypertension) Hypothyroidism Measles Mumps Osteoarthritis Vitamin D deficiency Surgical History Surgical History Gall bladder stones H/O cataract extraction History of appendectomy History of gastric bypass History of hysterectomy History of tonsillectomy Parotid tumor Family History Family History Mother Family history of lung cancer Hypertension Congestive heart failure Father Coronary artery disease Emphysema lung Social History Social History (Updated 09/19/23 @ 08:32 by Helen Cuello APRN) Smoking packs per day: 1 Smoking cigarettes per day: 20.0 Years smoked: 18 Smoking pack-years: 18.00 Smoking status: Former smoker Tobacco type: cigarettes Smoking end date: 04/27/85 Alcohol intake: never Substance use: never Substance use type: does not use Do You Feel Safe in your Home?: Yes Lack of Transportation: No Lack of Food: Never True Current Housing: I Have Housing Concerned About Future Housing: No Difficulty Paying Gas/Electric Bills: No Difficulty Paying for Meds: No Currently Unemployed: No Education: High School Diploma/GED Difficulty w/ Childcare or Family Care: No Living arrangements: with family Spiritual care concerns: No Anes - Eval Final PreProcedure Day of Procedure 11/05/23 08:25 Patient weight: normal Heart: regular rate and rhythm Lungs: clear to auscultation Airway: Mallampati scale class II Neurological: alert and oriented Last oral intake: >/= 8 hours ASA classification: III Emergent: no Anesthetic plan: proceed Anesthesia type and monitoring: general GIVS and standard monitoring Results Review: All pre-operative results and documents have been reviewed as part of the pre-operative evaluation. Informed Consent: The patient's anesthetic plan and its attendant risks and benefits were discussed with the patient/family/POA. Questions were solicited and answers provided to the satisfaction of the patient/family/POA.
--- NOTE | 2023-11-05 08:44 | PM.HPGS ---
History of Present Illness History of Present Illness Consent: Risks, benefits, and alternatives have been discussed and questions answered. Patient agrees to proceed with procedure. Chief complaint: other fecal abnormalities, Family history malignan Narrative: Kanchan Vuong is a 78 year old female here for colonoscopy, last one 5 years ago, brother had colon cancer Review of Systems Review of Systems: All systems reviewed & are unremarkable except as noted in HPI and below PMFSH Past Medical History Medical History Aortic valve sclerosis Cataract Elevated liver enzymes Gout HTN (hypertension) Hypothyroidism Measles Mumps Osteoarthritis Vitamin D deficiency Surgical History Surgical History Gall bladder stones H/O cataract extraction History of appendectomy History of gastric bypass History of hysterectomy History of tonsillectomy Parotid tumor Family History Family History Mother Family history of lung cancer Hypertension Congestive heart failure Father Coronary artery disease Emphysema lung Social History Social History (Updated 09/19/23 @ 08:32 by Helen Cuello APRN) Smoking packs per day: 1 Smoking cigarettes per day: 20.0 Years smoked: 18 Smoking pack-years: 18.00 Smoking status: Former smoker Tobacco type: cigarettes Smoking end date: 04/27/85 Alcohol intake: never Substance use: never Substance use type: does not use Do You Feel Safe in your Home?: Yes Lack of Transportation: No Lack of Food: Never True Current Housing: I Have Housing Concerned About Future Housing: No Difficulty Paying Gas/Electric Bills: No Difficulty Paying for Meds: No Currently Unemployed: No Education: High School Diploma/GED Difficulty w/ Childcare or Family Care: No Living arrangements: with family Spiritual care concerns: No Meds Home Medications and Allergies Home Medications Medication Instructions Recorded Confirmed Type calcium carbonate (Calcium 600) 600 mg PO DAILY 01/09/20 11/05/23 History multivitamin 1 tablet PO DAILY 01/09/20 11/05/23 History allopurinol 100 mg tablet See Rx Instructions .Route 10/14/21 11/05/23 Rx .COMPLEX #90 tabs losartan 50 mg tablet See Rx Instructions .Route 10/14/21 11/05/23 Rx .COMPLEX #90 tabs Synthroid 100 mcg tablet 100 mcg PO DAILY #90 tabs 08/18/23 11/05/23 Rx (levothyroxine) amlodipine 10 mg tablet See Rx Instructions .Route 08/18/23 11/05/23 Rx .COMPLEX #90 tabs cholecalciferol (vitamin D3) 50 50 mcg PO DAILY 08/18/23 11/05/23 History mcg (2,000 unit) capsule Allergies Allergy/AdvReac Type Severity Reaction Status Date / Time No Known Allergies Allergy Verified 11/05/23 07:41 Vital Signs Vital Signs - 24 hr 11/05/23 07:42 Temperature 96.6 F L Pulse Rate 76 Respiratory Rate 20 Blood Pressure 134/58 L Pulse Oximetry 98 Oxygen Delivery Room Air Assessment and Plan Assessment and plan (1) Family history of colon cancer: Code(s): Z80.0 - Family history of malignant neoplasm of digestive organs Status: Acute Assessment and Plan: colonoscopy
[2023-11-05 09:07] VITALS: BP 107/45; PULSE 66; RESP 20; O2SAT 100
[2023-11-05 09:17] VITALS: BP 125/52; PULSE 64; RESP 18; O2SAT 100
[2023-11-05 09:27] VITALS: BP 140/53; PULSE 60; RESP 15; O2SAT 100
== END 2023-11-05 09:38 | disposition home or self-care (01) ==
PROVIDERS: PCP Internal Medicine; Visit Provider Internal Medicine Gastroenterology
PROC: 0DJD8ZZ Inspection of Lower Intestinal Tract, Via Natural or Artificial Opening Endoscopic (ICD-10-PCS; CPT 45378; principal; 2023-11-05 09:00)
DX: K63.5 Polyp of colon (principal); K64.8 Other hemorrhoids; K57.30 Diverticulosis of large intestine without perforation or abscess without bleeding; I10 Essential (primary) hypertension; E03.9 Hypothyroidism, unspecified; E55.9 Vitamin D deficiency, unspecified; Z98.890 Other specified postprocedural states; Z98.84 Bariatric surgery status; Z87.891 Personal history of nicotine dependence; Z86.79 Personal history of other diseases of the circulatory system; Z80.0 Family history of malignant neoplasm of digestive organs; Z80.1 Family history of malignant neoplasm of trachea, bronchus and lung; Z82.49 Family history of ischemic heart disease and other diseases of the circulatory system
CPT/HCPCS: 45385; 88305; J2704; J7120

== ENCOUNTER 2024-03-19 16:51 | Emergency (ER) | payer MEDICARE, BC, SELFPAY ==
--- NOTE | 2024-03-19 17:01 | ED_ITS ---
HPI - General Adult General Chief complaint: Nausea/Vomiting/Diarrhea Stated complaint: n/v/d Time Seen by Provider: 03/19/24 17:00 Source: patient Mode of arrival: ambulatory Limitations: no limitations History of Present Illness HPI narrative: 78 YEARS OLD WHITE FEMALE CAME TO THE ED BY AMBULANCE FROM HOME COMPLAINING OF VOMITING AND DIARRHEA STARTED 2:00 A.M.. PATIENT REPORTS AT LEAST 2 VOMITING AND DIARRHEA EVERY HOUR SINCE THAT TIME. SHE DENIES ANY FEVER, CHILLS, ABDOMINAL PAIN, CHEST PAIN, SHORTNESS OF BREATH, BACK PAIN OR URINARY SYMPTOMS. PATIENT REPORTS 1 OF HER FRIEND HAD SIMILAR SYMPTOMS YESTERDAY AND A RESOLVED TODAY. Related Data Home Medications Medication Instructions Recorded Confirmed calcium carbonate (Calcium 600) 600 mg PO DAILY 01/09/20 02/17/24 multivitamin 1 tablet PO DAILY 01/09/20 02/17/24 cholecalciferol (vitamin D3) 50 50 mcg PO DAILY 08/18/23 02/17/24 mcg (2,000 unit) capsule Allergies Allergy/AdvReac Type Severity Reaction Status Date / Time No Known Allergies Allergy Verified 02/17/24 08:39 Review of Systems Review of Systems: All systems reviewed & are unremarkable except as noted in HPI and below PMFSH Past Medical History Medical History Aortic valve sclerosis Cataract Elevated liver enzymes Gout HTN (hypertension) Hypothyroidism Measles Mumps Osteoarthritis Vitamin D deficiency Surgical History Surgical History Gall bladder stones H/O cataract extraction History of appendectomy History of gastric bypass History of hysterectomy History of tonsillectomy Parotid tumor Family History Family History Mother Family history of lung cancer Hypertension Congestive heart failure Father Coronary artery disease Emphysema lung Social History Social History Smoking packs per day: 1 Smoking cigarettes per day: 20.0 Years smoked: 18 Smoking pack-years: 18.00 Smoking status: Former smoker Tobacco type: cigarettes Smoking end date: 04/27/85 Alcohol intake: never Substance use: never Substance use type: does not use Do You Feel Safe in your Home?: Yes Lack of Transportation: No Lack of Food: Never True Current Housing: I Have Housing Concerned About Future Housing: No Difficulty Paying Gas/Electric Bills: No Difficulty Paying for Meds: No Currently Unemployed: No Education: High School Diploma/GED Difficulty w/ Childcare or Family Care: No Living arrangements: with family Spiritual care concerns: No Exam Narrative: GENERAL APPEARANCE: WELL-DEVELOPED, WELL-NOURISHED SKIN: NORMAL COLOR HEAD: NORMOCEPHALIC, NONTRAUMATIC EYES: CLEAR CONJUNCTIVA ENT: OROPHARYNX NORMAL, EARS NORMAL, NOSE NORMAL NECK: SUPPLE, NONTENDER CHEST AND RESPIRATORY: AIRWAY PATENT, NO RESPIRATORY DISTRESS, NO ACCESSORY MUSCLE USE HEART: REGULAR RATE/RHYTHM ABDOMEN: SOFT, NONTENDER, NO ORGANOMEGALY, QUIET BOWEL SOUNDS VASCULAR: NORMAL PERIPHERAL PULSES, NORMAL CAPILLARY REFILL. MUSCULOSKELETAL: NORMAL RANGE OF MOTION, NONTENDER BACK NEUROLOGIC: ALERT AND ORIENTED ?3, EVENT COORDINATOR MARKETING AND SALES IS NORMAL TESTED, NO GROSS MOTOR DEFICIT Course Vital Signs Vital signs: Vital Signs Temperature 37.1 C 03/19/24 17:10 Pulse Rate 95 03/19/24 17:10 Respiratory Rate 17 03/19/24 17:10 Blood Pressure 160/63 H 03/19/24 17:10 Pulse Oximetry 95 03/19/24 17:10 Temperature 36.8 C 03/19/24 19:00 Pulse Rate 95 03/19/24 19:00 Respiratory Rate 12 03/19/24 19:00 Blood Pressure 154/67 H 03/19/24 19:00 Pulse Oximetry 100 03/19/24 19:00 Medical Decision Making [facility] Narrative Medical decision making narrative: PATIENT CAME WITH NAUSEA VOMITING AND DIARRHEA STARTED 2:00 A.M. VITAL SIGNS ARE STABLE DIFFERENTIAL DIAGNOSIS INCLUDE VIRAL GASTROENTERITIS, DEHYDRATION, ELECTROLYTE IMBALANCE BLOOD WORKUP TODAY INCLUDE CBC, CMP, SWAB FOR COVID, FLU AND RSV SHOWED INSIGNIFICANT ABNORMALITY PATIENT WAS ABLE TO KEEP FLUIDS AND CRACKERS DOWN PRIOR TO DISCHARGE. DIAGNOSIS GASTROENTERITIS Differential Diagnosis Differential Diagnosis: ABOVE Vital Signs Vital Signs: Vital Signs Temperature 37.1 C 03/19/24 17:10 Pulse Rate 95 03/19/24 17:10 Respiratory Rate 17 03/19/24 17:10 Blood Pressure 160/63 H 03/19/24 17:10 Pulse Oximetry 95 03/19/24 17:10 Temperature 36.8 C 03/19/24 19:00 Pulse Rate 95 03/19/24 19:00 Respiratory Rate 12 03/19/24 19:00 Blood Pressure 154/67 H 03/19/24 19:00 Pulse Oximetry 100 03/19/24 19:00 Lab Data 03/19/24 18:55 03/19/24 19:44 Labs: Lab Results 03/19/24 03/19/24 03/19/24 Range/Units 18:38 18:55 19:44 WBC 7.5 (4.5-10.0) K/mm3 RBC 4.27 (4.2-5.4) M/mm3 Hgb 13.2 (12.0-15.0) g/dL Hct 39.6 (37.0-47.0) % MCV 92.7 (80-100) fl MCH 30.9 (26-34) pg MCHC 33.3 (32-36) g/dl RDW 13.5 (11.5-14.5) % Plt Count 252 (150-375) k/mm3 MPV 10.4 (7.4-10.4) fl Immature Gran % (Auto) 0.3 (0-0.5) % Neut % (Auto) 92.8 H (45.5-73.1) % Lymph % (Auto) 3.7 L (18.3-44.2) % [place] % (Auto) 2.9 (2.6-8.5) % Eos % (Auto) 0.0 (0-4.4) % Baso % (Auto) 0.3 (0.2-1.2) % Lymph # (Auto) 0.28 L (0.9-3.2) K/mm3 [place] # (Auto) 0.2 (0.1-0.6) K/mm3 Eos # (Auto) 0.0 (0-0.3) K/mm3 Baso # (Auto) 0.0 (0.0-0.1) K/mm3 Abs Immat Gran (auto) 0.02 (0.00-0.031) K/mm3 Absolute Neuts (auto) 7.0 H (1.3-6.7) K/mm3 Absolute Nucleated RBC 0.000 (0.0-0.012) K/mm3 Nucleated RBC % 0.0 (0.0-0.2) % Sodium 139 (137-145) mmol/L Potassium 4.3 (3.4-5.0) mmol/L Chloride 111 H (98-107) mmol/L Carbon Dioxide 22 (22-30) mmol/L Anion Gap 6 (4-12) mmol/L BUN 17 (7-17) mg/dL Creatinine 0.80 (0.7-1.0) mg/dL Estim Creat Clear Calc Not Reportable Estimated GFR > 60 (59 - ) Glucose 124 H (65-110) mg/dL Calcium 8.9 (8.4-10.2) mg/dL Total Bilirubin 0.6 (0.2-1.3) mg/dL AST 44 H (14-36) U/L ALT 36 H (6-35) U/L Alkaline Phosphatase 99 (38-126) U/L Total Protein 6.0 L (6.3-8.2) g/dL Albumin 3.5 (3.5-5.1) g/dL Influenza A (RT-PCR) Negative (Negative) Influenza B (RT-PCR) Negative (Negative) RSV (RT-PCR) Negative (Negative) SARS-CoV-2 RNA (RT-PCR) Negative (Negative) Critical Care Time Critical Care Time Critical Care Time: No Discharge Plan Discharge Clinical Impression: Gastroenteritis Patient Disposition: Home, Self-Care Condition: Improved Instructions: Gastroenteritis (ED) Additional Instructions: RETURN IF SYMPTOMS ARE WORSENING , CALL YOUR FAMILY PHYSICIAN FOR APPOINTMENT, TAKE TYLENOL NEEDED FOR ACHES AND PAIN, CONTINUE HOME MEDICATIONS. Prescriptions: New ondansetron HCl 4 mg tablet 4 mg PO Q4H Qty: 10 0RF Rx Instructions: give 1st dose 30min before emetogenic chemo No Action calcium carbonate [Calcium 600] 600 mg calcium (1,500 mg) tablet 600 mg PO DAILY multivitamin Tablet 1 tablet PO DAILY cholecalciferol (vitamin D3) 50 mcg (2,000 unit) capsule 50 mcg PO DAILY levothyroxine [Synthroid] 100 mcg tablet 100 mcg PO DAILY Qty: 90 1RF amlodipine 10 mg tablet See Rx Instructions .ROUTE .COMPLEX Qty: 90 1RF Dose Instruction: TAKE 1 TABLET DAILY Rx Instructions: TAKE 1 TABLET DAILY losartan 50 mg tablet See Rx Instructions .ROUTE .COMPLEX Qty: 90 3RF Dose Instruction: TAKE 1 TABLET DAILY Rx Instructions: TAKE 1 TABLET DAILY allopurinol 100 mg tablet See Rx Instructions .ROUTE .COMPLEX Qty: 90 1RF Dose Instruction: TAKE 1 TABLET DAILY Rx Instructions: TAKE 1 TABLET DAILY Follow-up/Referrals: Zeus Shay, [Primary Care Provider] -
[2024-03-19 17:10] VITALS: BP 160/63; PULSE 95; RESP 17; TEMP 37.1; O2SAT 95
[2024-03-19] MEDS: SODIUM CHLORIDE 0.9% IV 1,000 ML 999 ML IV CONT (17:40)
[2024-03-19 17:54] VITALS: BP 152/65; PULSE 93; RESP 23; O2SAT 94
[2024-03-19 19:00] VITALS: BP 154/67; PULSE 95; RESP 12; TEMP 36.8; O2SAT 100
[2024-03-19 19:14] LABS: Basophils Percent Auto 0.3 % (0.2-1.2); Hematocrit 39.6 % (37.0-47.0); Hemoglobin 13.2 g/dL (12.0-15.0); Immature Granulocyte Absolute 0.02 K/mm3 (0.00-0.031); Immature Granulocyte Percent A 0.3 % (0-0.5); Lymphocytes Absolute Auto 0.28 K/mm3 (0.9-3.2); Lymphocytes Percent Auto 3.7 % (18.3-44.2); Mean Corpuscular HGB Conc 33.3 g/dl (32-36); Mean Corpuscular Hemoglobin 30.9 pg (26-34); Mean Corpuscular Volume 92.7 fl (80-100); Mean Platelet Volume 10.4 fl (7.4-10.4); Monocytes Absolute Auto 0.2 K/mm3 (0.1-0.6); Monocytes Percent Auto 2.9 % (2.6-8.5); Neutrophils Percent Auto 92.8 % (45.5-73.1); Platelet Count Result 252 k/mm3 (150-375); Red Blood Count 4.27 M/mm3 (4.2-5.4); Red Cell Distribution Width 13.5 % (11.5-14.5); White Blood Count 7.5 K/mm3 (4.5-10.0)
[2024-03-19 19:25] LABS: Influenza A QL RT-PCR Negative (Negative); Influenza B QL RT-PCR Negative (Negative); RSV RNA, RT-PCR Negative (Negative); SARS-CoV-2 RNA PCR Negative (Negative)
[2024-03-19 20:01] LABS: Alanine Aminotransferase 36 U/L (6-35); Albumin Level 3.5 g/dL (3.5-5.1); Alkaline Phosphatase 99 U/L (38-126); Anion Gap 6 mmol/L (4-12); Aspartate Amino Transferase 44 U/L (14-36); Bilirubin,Total 0.6 mg/dL (0.2-1.3); Blood Urea Nitrogen 17 mg/dL (7-17); Calcium 8.9 mg/dL (8.4-10.2); Carbon Dioxide 22 mmol/L (22-30); Chloride 111 mmol/L (98-107); Estimated Glomerular Filt Rate > 60; Glucose 124 mg/dL (65-110); Potassium 4.3 mmol/L (3.4-5.0); Sodium 139 mmol/L (137-145)
[2024-03-19 20:15] VITALS: BP 152/60; PULSE 97; RESP 18; TEMP 36.8; O2SAT 100
== END 2024-03-19 20:40 | disposition home or self-care (01) ==
PROVIDERS: Emergency Provider Emergency Medicine; PCP Internal Medicine
DX: K52.9 Noninfective gastroenteritis and colitis, unspecified (principal); Z20.822 Contact with and (suspected) exposure to COVID-19; I70.0 Atherosclerosis of aorta; I35.8 Other nonrheumatic aortic valve disorders; I10 Essential (primary) hypertension; E03.9 Hypothyroidism, unspecified; E55.9 Vitamin D deficiency, unspecified; M10.9 Gout, unspecified; M19.90 Unspecified osteoarthritis, unspecified site; Z98.84 Bariatric surgery status; Z87.891 Personal history of nicotine dependence; Z98.49 Cataract extraction status, unspecified eye; Z90.710 Acquired absence of both cervix and uterus
CPT/HCPCS: 36415; 80053; 85025; 87637; 96360; 99283; J7030

== ENCOUNTER 2024-08-01 11:51 | Outpatient (CLI) | payer MEDICARE, BC, SELFPAY ==
--- NOTE | ~2024-08-01 | MM_ITS ---
EXAMINATION: MM screening jia BI w andi HISTORY: Screening TECHNIQUE: Craniocaudal and mediolateral oblique 3-D tomosynthesis images were obtained and synthetic 2-D images were generated. CAD analysis was submitted and interpreted. COMPARISON: Comparison to multiple prior studies sequentially, with oldest reviewed study dated 08/11. BREAST PARENCHYMAL COMPOSITION: There are scattered areas of fibroglandular density. FINDINGS: There is no evidence of suspicious mass, calcification, or architectural distortion to sugg est malignancy in either breast. There has been no suspicious interval change. IMPRESSION: 1. No mammographic evidence of malignancy. 2. Recommend routine screening mammography in one year. BI-RADS Category 1: Negative Reviewed, dictated and finalized at location A.
== END 2024-08-01 11:52 | disposition home or self-care (01) ==
LOC: MICIMG 11:53
PROVIDERS: PCP Internal Medicine; Visit Provider Nurse Practitioner
DX: Z12.31 Encounter for screening mammogram for malignant neoplasm of breast (principal)
CPT/HCPCS: 77063; 77067

== ENCOUNTER 2024-09-14 10:52 | Outpatient (CLI) | payer MEDICARE, BC, SELFPAY ==
--- NOTE | ~2024-09-14 | DEXA_ITS ---
Bone Density Report Name: VICKY GALLEGOS Age: 79 Sex: Female Ethnicity: White Date of : 1945 Indication: osteopenia; height loss; hysterectomy; Referring Provider: Laura Mahoney Study: Bone densitometry was performed. Exam Date: September 14, 2024 Accession number: [id number] Bone Density: Region BMD T-score Z-score Classification AP Spine(L1-L4) 0.868 -1.6 1.0 Osteopenia Femoral Neck (Left) 0.558 -2.6 -0.4 Osteoporosis Total Hip (Left) 0.696 -2.0 -0.1 Osteopenia Femoral Neck (Right) 0.521 -3.0 -0.7 Osteoporosis Total Hip (Right) 0.627 -2.6 -0.6 Osteoporosis Total Hip Mean 0.662 -2.3 -0.4 Osteopenia World Health Organization criteria for BMD impression classify patients as: Normal (T-score at or above -1.0), Osteopenia (T-score between -1.0 and -2.5), or Osteoporosis (T-score at or below -2.5). 10-year Fracture Risk: FRAX not reported because: Some T-score for Spine Total or Hip Total or Femoral Neck at or below -2.5 Previous Exams: -- Region Exam Age BMD T-score BMD Change BMD Change Date g/cm2 vs Baseline vs Previous -- AP Spine (L1-L4) 09/14/2024 79 0.868 -1.6 -25.3%# -11.4%* 02/16/2018 72 0.980 -0.6 -15.6%# -7.2%* 05/08/2014 69 1.056 0.1 -9.1%# -9.1%# 07/09/2011 66 1.161 1.0 Total Hip(Left) 09/14/2024 79 0.696 -2.0 -37.3%# -18.3%* 02/16/2018 72 0.851 -0.7 -23.3%# -10.5%* 05/08/2014 69 0.951 0.1 -14.2%# -14.2%# 07/09/2011 66 1.109 1.4 Total Hip(Right) 09/14/2024 79 0.627 -2.6 -37.7%# -18.4%* 02/16/2018 72 0.769 -1.4 -23.7%# -8.1%* 05/08/2014 69 0.836 -0.9 -17.0%# -17.0%# 07/09/2011 66 1.007 0.5 -- *Denotes significance at 95% confidence level, LSC for AP Spine = 0.022 g/cm2, LSC for Total Hip = 0.027 g/cm2 # Denotes dissimilar scan types or analysis methods Clinical Information Provided by Patient: Has used the following medications: HRT (i.e. estrogen/hormone therapy), Vitamin D, Calcium Has the following medical conditions: Hysterectomy Patient maximum height was 64.0 Menopause Age: 35 No regular weight bearing exercise Drinks caffeinated beverages Onset of menses at age 16 Number of children 2 Impression: The patient has osteoporosis, based on the Right Femoral Neck T-score. The BMD for the AP Spine (L1-L4) decreased, changing by -11.4% since the last DXA exam. The BMD for the Total Hip(Left) decreased, changing by -18.3% since the last DXA exam. The BMD for the Total Hip(Right) decreased, changing by -18.4% since the last DXA exam. Discussion: INCREASED RISK OF FRACTURE. BONE DENSITY IS UNDESIRABLY LOW AT ONE OR MORE SKELETAL SITES, CONSISTENT WITH POSTMENOPAUSAL OSTEOPOROSIS. This patient's lowest T-score meets the World Health Organization's (WHO) criteria for osteoporosis at one or more sites (T-score -2.5 or below). In untreated patients, the risk of osteoporotic fracture increases approximately two-fold for each 1.0 SD decrease in T-score. Low bone density is not the only risk factor for fracture; also consider factors such as patient's age, frailty or poor health, risk of falling, risk of injury, previous osteoporotic fracture, family history of osteoporosis, cigarette smoking, low body weight, etc. Not everyone with low bone mineral density has osteoporosis; osteomalacia and other metabolic bone disorders should also be considered. Patients who have osteoporosis should be evaluated for specific diseases and conditions (secondary causes) that may cause or contribute to bone loss. The [place] [employer] Endocrinologists (AACE) and National Osteoporosis Foundation (NOF) recommend pharmacologic intervention for all postmenopausal women whose T-score is in this range. The patient should follow a healthful lifestyle (good nutrition with adequate calcium and vitamin D, and appropriate weight-bearing exercise). Follow-Up: Consider a repeat BMD and Vertebral Fracture Assessment (VFA) exam in 2 years or sooner if medically necessary, to reassess this patient's status. Reported by: GENI on 09/14/2024 11:33:00 AM. Reviewed, dictated and finalized at location AMois[facility] BROWN
== END 2024-09-14 10:53 | disposition home or self-care (01) ==
PROVIDERS: PCP Nurse Practitioner; Visit Provider Nurse Practitioner
DX: M81.0 Age-related osteoporosis without current pathological fracture (principal); Z78.0 Asymptomatic menopausal state
CPT/HCPCS: 77080

== ENCOUNTER 2024-11-24 08:56 | Emergency (ER) | payer MEDICARE, BC, SELFPAY ==
--- NOTE | ~2024-11-24 | XR_ITS ---
Exam: Abdomen 1V HISTORY: left flank pain r/o stone COMPARISON: None. Reference is made to CT examination of the abdomen and pelvis dated 02/13/2017 TECHNIQUE: Supine images of the abdomen FINDINGS: Bowel gas pattern is nonspecific and non-obstructive. Fecal stasis within the proximal colon. Air within the rectum. There is no free air or deep sulci. No pathologic calcifications are seen. Lung bases are unremarkable. Bones and soft tissues are unremarkable. IMPRESSION: Nonspecific, nonobstructive bowel gas pattern. Reviewed, dictated and finalized at location A.
--- NOTE | 2024-11-24 09:04 | ED_ITS ---
HPI - Female Genitourinary General Chief complaint: Urogenital-Female Stated complaint: UTI Time Seen by Provider: 11/24/24 09:05 Source: patient Mode of arrival: ambulatory Limitations: no limitations History of Present Illness HPI Narrative: Kanchan is a 79 year old female patient presenting to the clinic today with c/o possible UTI. She reports she is having bilateral low back pain-worse on the left and low urine output since yesterday. No fever, chills, or bodyaches. Last BM yesterday and normal for the patient. Has taken Tylenol last night for the pain but nothing this morning. Rates pain 8.5/10 currently. Pain is sharp and constant. History of urinary incontinence and a bladder sling surgery. Related Data Home Medications ?Medication ?Instructions ?Recorded ?Confirmed ?Last Taken ?Type calcium carbonate (Calcium 600) 600 mg PO DAILY 01/09/20 10/27/24 11/04/23 History multivitamin 1 tablet PO DAILY 01/09/20 10/27/24 11/04/23 History cholecalciferol (vitamin D3) 50 50 mcg PO DAILY 08/18/23 10/27/24 11/04/23 History mcg (2,000 unit) capsule Allergies Allergy/AdvReac Type Severity Reaction Status Date / Time No Known Allergies Allergy Verified 11/24/24 09:38 Review of Systems Review of Systems: Pertinent positives per HPI. Patient denies any fever, chills, rash, headache, visual changes, dizziness, cough, runny nose, sore throat, shortness of breath, chest pain, palpitations, nausea, vomiting, diarrhea, constipation, abdominal pain, or any urinary issues. [facility] Past Medical History Medical History Age related osteoporosis Aortic valve sclerosis Cataract Gout Measles Mumps Osteoarthritis Hypothyroidism Vitamin D deficiency HTN (hypertension) Elevated liver enzymes Surgical History Surgical History Gall bladder stones Parotid tumor History of appendectomy History of hysterectomy History of tonsillectomy History of gastric bypass H/O cataract extraction Family History Family History Mother Family history of lung cancer Hypertension Congestive heart failure Father Coronary artery disease Emphysema lung Social History Social History Smoking packs per day: 1 Smoking cigarettes per day: 20.0 Years smoked: 18 Smoking pack-years: 18.00 Smoking status: Former smoker Tobacco type: cigarettes Smoking end date: 04/27/85 Alcohol intake: never Substance use: never Substance use type: does not use Do You Feel Safe in your Home?: Yes Lack of Transportation: No Lack of Food: Never True Current Housing: I Have Housing Concerned About Future Housing: No Difficulty Paying Gas/Electric Bills: No Difficulty Paying for Meds: No Currently Unemployed: No Education: High School Diploma/GED Difficulty w/ Childcare or Family Care: No Living arrangements: with family Spiritual care concerns: No Comments At the time of my signature, I reviewed and agree with the nursing past medical, surgical, social, and family history. There is no relevant family history pertinent to the patient complaint. Exam Narrative: General: Well-developed, well nourished, in no apparent distress. Head: Normocephalic, atraumatic. Cardio: Regular rate and rhythm, s1 and s2 normal, no murmur appreciated. Resp: Clear to auscultation bilaterally, no rhonchi, rales, wheezing or rubs. Abdomen: Soft, pliable, bowel sounds present in all quadrants, non-tender to palpation, no organomegly, right CVAT tenderness. Course Course Emergency Course: Portions of this record may have been created with voice recognition software. Level of Care: Express Care Visit Vital Signs Vital signs: Vital Signs Temperature 36.8 C 11/24/24 09:06 Pulse Rate 66 11/24/24 09:06 Respiratory Rate 16 11/24/24 09:06 Blood Pressure 147/55 H 11/24/24 09:06 Pulse Oximetry 97 11/24/24 09:06 Oxygen Delivery Room Air 11/24/24 09:06 Temperature 36.8 C 11/24/24 09:06 Pulse Rate 66 11/24/24 09:06 Respiratory Rate 16 11/24/24 09:06 Blood Pressure 147/55 H 11/24/24 09:06 Pulse Oximetry 97 11/24/24 09:06 Oxygen Delivery Room Air 11/24/24 09:06 Vital signs reviewed MDM - Female Genitourinary MDM Narrative Medical decision making narrative: At the time of visit patient is resting comfortably on the exam table. Patient appears to be nontoxic. C/o possible UTI. She reports she is having bilateral low back pain-worse on the left and low urine output since yesterday. No fever, chills, or body aches. Last BM yesterday and normal for the patient. Has taken Tylenol last night for the pain but nothing this morning. Rates pain 8.5/10 currently. Pain is sharp and constant. History of urinary incontinence. History of bladder sling. No history of kidney stones. Will order urine dip and KUB to rule out kidney/ureteral stone. Labs: Urinalysis positive for 2+ leukocytes and trace of lysed blood. We will send urine for culture Diagnostics: KUB x-ray was performed and negative for any acute abdomen pathology. Plan: I suspect patient has UTI. Prescription for Keflex was sent to the pharmacy. Supportive measures were discussed with the patient and they voiced understanding discharge instructions and agrees to treatment plan. Return precautions reviewed Differential Diagnosis Differential diagnosis: Likely urinary tract infection, cystitis and other (Obstructing ureterolithiasis, pyelonephritis) Lab Data Labs: Lab Results 11/24/24 Range/Units 09:10 POC Urine Color Yellow POC Urine Clarity Cloudy POC Urine pH 7.0 POC Ur Specif [place] 1.015 POC Urine Protein Negative (Negative) POC Ur Glucose (UA) Negative (Negative) POC Urine Ketones Negative (Negative) POC Urine Blood Trace (Negative) POC Urine Nitrite Negative (Negative) POC Urine Bilirubin Negative (Negative) POC Urine Urobilinogen 0.2 POC U Leukocyte Esteras 2+ (Negative) Imaging Data Radiologist's impression: ITS Impressions Abdomen X-Ray 11/24/24 09:56 IMPRESSION: Nonspecific, nonobstructive bowel gas pattern. Discharge Plan Discharge Clinical Impression: Urinary tract infection Qualifiers: Urinary tract infection type: site unspecified Hematuria presence: without hematuria Qualified Code(s): N39.0 - Urinary tract infection, site not specified Patient Disposition: Home Condition: Stable Instructions: Antibiotic Form, Urinary Tract Infection in Older Adults (ED) Additional Instructions: Urinalysis shows 2+ leukocytes and trace of blood. We will send urine for culture X-ray of the abdomen is negative for any sign kidney stones in the ureter Take cephalexin as prescribed Increase fluids and stay well hydrated Wipe front to back. May use wet wipes. Avoid tub baths If sexually active- pee before and after intercourse. Wear cotton panties Avoid tight clothing up against the genitals Follow up with your PCP in 1 week if symptoms persist. Patient Language: Algerian Prescriptions: New cephalexin 500 mg capsule 500 mg PO Q12H 7 Days Qty: 14 0RF No Action calcium carbonate [Calcium 600] 600 mg calcium (1,500 mg) tablet 600 mg PO DAILY multivitamin Tablet 1 tablet PO DAILY cholecalciferol (vitamin D3) 50 mcg (2,000 unit) capsule 50 mcg PO DAILY alendronate [Fosamax] 70 mg tablet 70 mg PO WEEKLY Qty: 12 3RF allopurinol 100 mg tablet See Rx Instructions .ROUTE .COMPLEX Qty: 90 1RF Dose Instruction: TAKE 1 TABLET DAILY Rx Instructions: TAKE 1 TABLET DAILY amlodipine 10 mg tablet See Rx Instructions .ROUTE .COMPLEX Qty: 90 1RF Dose Instruction: TAKE 1 TABLET DAILY Rx Instructions: TAKE 1 TABLET DAILY losartan 50 mg tablet See Rx Instructions .ROUTE .COMPLEX Qty: 90 1RF Dose Instruction: TAKE 1 TABLET DAILY Rx Instructions: TAKE 1 TABLET DAILY levothyroxine [Synthroid] 100 mcg tablet 100 mcg PO DAILY Qty: 90 1RF Follow-up/Referrals: Laura Mahoney NP [Primary Care Provider] - Time of Disposition: 10:09 Quality NIHSS Nursing Documentation ED NIHSS nursing documentation: reviewed/agree
[2024-11-24 09:06] VITALS: BP 147/55; PULSE 66; RESP 16; TEMP 36.8; O2SAT 97
[2024-11-24 09:16] LABS: EDUAAPPEAR Cloudy; EDUABILI Negative (Negative); EDUABLOOD Trace (Negative); EDUACOLOR1 Yellow; EDUAGLUCOSE Negative (Negative); EDUAKETONE Negative (Negative); EDUALEUKO 2+ (Negative); EDUANITRATE Negative (Negative); EDUAPH 7.0; EDUAPROTEIN Negative (Negative); EDUASPGRAVITY 1.015; EDUAUROBILI 0.2
== END 2024-11-24 10:17 | disposition home or self-care (01) ==
PROVIDERS: Emergency Provider Nurse Practitioner Family; PCP Nurse Practitioner
DX: N39.0 Urinary tract infection, site not specified (principal); E03.9 Hypothyroidism, unspecified; I10 Essential (primary) hypertension; Z87.891 Personal history of nicotine dependence
CPT/HCPCS: 74018; 81003; 99213; G0463

== ENCOUNTER 2025-02-22 08:13 | Outpatient (CLI) | payer MEDICARE, BC, SELFPAY ==
--- NOTE | ~2025-02-22 | NM_ITS ---
EXAMINATION: NM shelai stress w perfusion DATE: 02/22/2025 12:24 INDICATION: Other forms of dyspnea TECHNIQUE: Rest images were obtained following intravenous administration of 10.9 mCi Tc99m tetrofosmin (Myoview). The patient was infused intravenously with Lexiscan (Regadenoson). Then, 33.4 mCi Tc99m tetrofosmin (Myoview) was administered intravenously, and stress images were obtained. Data was isabel nstructed into short axis and horizontal and vertical long axis SPECT images. Gated SPECT images were also obtained. COMPARISON: None. FINDINGS: There is no definite reversible or fixed perfusion abnormality to suggest ischemia or infarction. There is normal left ventricular chamber size, wall motion and ejection fraction. Left ventricular ejection fraction measures >70%. IMPRESSION: 1. Normal myocardial perfusion at rest and during stress. 2. Left ventricular ejection fraction measuring >70%. Reviewed, dictated and finalized at location A.
--- OUTSIDE RECORDS SUMMARY | 2025-02-22 08:31 | XMS_ITS | Clinical Summary ---
Author Organization [facility] Address [address] [place] [address] Care Team Providers Care Rn L And D Name Role Phone Laura Mahoney NP Primary Care Provider Allergies No known active allergies Medications allopurinol (ZYLOPRIM) 100 mg tablet Take 1 tablet (100 mg total) by mouth daily Active multivitamin tabletIndications:V itamin Deficiency Prevention Take 1 tablet by mouth daily Active amLODIPine (NORVASC) 10 mg tablet Take 1 tablet (10 mg total) by mouth daily Active calcium carbonate (CALCIUM 600 ORAL) Take 600 mg by mouth daily Active cholecalciferol (VITAMIN D-3) 2000 unit capsule Take 1 capsule (2,000 Units total) by mouth daily Active losartan (COZAAR) 50 mg tablet Take 1 tablet (50 mg total) by mouth nightly 30 tablet 3 0 Active Synthroid 100 mcg tabletIndications:A cquired hypothyroidism Take 1 tablet (100 mcg total) by mouth daily 90 tablet 3 5 10/31/19 26 Active Active Problems Problem Noted Date Diagnosed Date Diastolic dysfunction without heart failure 01/27 Essential hypertension 02/24/2024 Physical deconditioning 08/25/2022 Assessment & Plan (08/25/2022 10:24 AM CDT): Advise to discuss with PCP regarding out pt PT/OT for strength building and improving on her balance Fall precautions ZEE (obstructive sleep apnea) 07/16/2021 Acquired hypothyroidism 01/03/2021 Assessment & Plan (10/27/2024 9:31 AM CDT): Chronic problem. Clinically & biochemically euthyroid. Currently taking levothyroxine 100mcg daily. Aware to take 1st thing in morning, 30-60 minutes before food/drink/other medications. Had labs completed 08/01/24 at [facility] (results will be scanned in). TSH improved from 0.428 08/20/23 to now 0.888. Will follow up with PCP from now on re: hypothyroidism; will come back to our office if needed. Assessment & Plan (10/28/2023 9:25 AM CDT): Chronic problem. Clinically euthyroid. Currently taking levothyroxine 100mcg daily. Aware to take 1st thing in morning, 30-60 minutes before food/drink/other medications. Will update TFTs today. Does not mychart. Verified phone #/address to contact re: results. Assessment & Plan (08/25/2022 10:23 AM CDT): Advised to continue current Synthroid 100 mcg oral daily Check thyroid function test today and further plans based on it Follow up in 12 months Instructions for taking levothyroxine Brand name is preferred Take thyroid pill all by itself Take thyroid pill one hour before food or 2 to 3 hours after food Heat, humidity, and direct sunlight will cause a loss of potency Never store thyroid pill in the bathroom The medication should be taken daily. If one or more pills are missing in a week, they can be taken all together at once, making sure at the end of the week, 7 tabs have been taken. Assessment & Plan (08/26/2021 11:18 AM CDT): Advised to continue current Synthroid 75 mcg oral daily Check thyroid function test today Follow up in 12 months Instructions for taking levothyroxine Brand name is preferred Take thyroid pill all by itself Take thyroid pill one hour before food or 2 to 3 hours after food Heat, humidity, and direct sunlight will cause a loss of potency Never store thyroid pill in the bathroom The medication should be taken daily. If one or more pills are missing in a week, they can be taken all together at once, making sure at the end of the week, 7 tabs have been taken. Assessment & Plan (01/03/2021 10:19 AM CDT): Reviewed recent TSH lab results 12/27/2020 - 1.90 WNL Advised to continue current Levothyroxine 75 mcg oral daily Recheck TSH every 2 months Follow up in 6 months Instructions for taking levothyroxine Brand name is preferred Take thyroid pill all by itself Take thyroid pill one hour before food or 2 to 3 hours after food Heat, humidity, and direct sunlight will cause a loss of potency Never store thyroid pill in the bathroom The medication should be taken daily. If one or more pills are missing in a week, they can be taken all together at once, making sure at the end of the week, 7 tabs have been taken. History of bariatric surgery 10/19/2015 Obesity 06/13/2014 Intestinal malabsorption 06/21/2013 Surgical History Surgery Date Site/Laterality Comments [place] TOTAL ABDOMINAL HYSTERECT W/WO RMVL TUBE OVARY Hysterectomy - (Added by TW Conv) [place] TONSILLECTOMY PRIMARY/SECONDARY <AGE 13 Tonsillectomy - (Added by TW Conv) SALIVARY GLAND SURGERY Surgery Excision Of Parotid Tumor/Gland - (Added by TW Conv) GASTRIC BYPASS Gastric Surgery For Morbid Obesity Gastric Bypass - (Added by TW Conv) [place] APPENDECTOMY Appendectomy - (Added by TW Conv) GALLBLADDER SURGERY 11/25/2016 - 12/25/2016 TUMOR REMOVAL Medical History Medical History Date Comments Personal history of other di seases of the musculoskeletal system and connective tissue History of gout - (Added by TW Conv) Personal history of other en docrine, nutritional and metabolic disease History of hypothyro idism - (Added by TW Conv) 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) Hypertension Sleep apnea Thyroid disease Family History Medical History Relation Name Comments Esophageal cancer Brother Family his tory of malignant neoplasm of esophagus - (Added by TW Conv) Heart attack Father Heart disease Father Cancer Maternal Grandfather Family history of malignant neoplasm - (Added by TW Conv) Heart disease Maternal Grandmother Family history of cardiac disorder - (Added by TW Conv) Heart failure Mother Hypertension Mother Lung cancer Mother Family history of lung cancer - (Added by TW Conv) Relation Name Status Comments Brother Father (Age 65) Maternal Grandfather Maternal Grandmother Mother (Age 89) Social History Tobacco Use Types Packs/Day Years Used Date Smoking Tobacco: Former Cigarettes Q uit: 1985 Smokeless Tobacco: Never Alcohol Use Standard Drinks/Week Comments Not Currently 0 (1 standard drink = 0.6 oz pur e alcohol) PHQ-2 Answer Date Recorded PHQ-2 Total Score (If total score is 3 or more points, staff should administer the PHQ-9) 0 08/26/2021 Comments Unknown Sex and Gender Information Value Date Recorded Sex Assigned at Not on file Legal Sex Female 9:12 AM [employer] Gender Identity Not on file Sexual Orientation Not on file Obstetrics History Last Filed Vital Signs Vital Sign Reading Time Taken Comments Blood Pressure 124/60 10/27/2024 8:50 AM CDT Pulse 70 10/27/2024 8:50 AM CDT Temperature 36.5 C (97.7 F) 07/16/2021 8:57 AM CDT Respiratory Rate 16 10/27/2024 8:50 AM CDT Oxygen Saturation 95% 02/24/2024 7:51 AM CDT Inhaled Oxygen Concentration - - Weight 72.1 kg (159 lb) 10/27/2024 8:50 AM CDT Height 162.2 cm (5' 3.86) 10/27/2024 8:50 AM CD T Body Mass Index 27.41 10/27/2024 8:50 AM CDT Plan of Treatment Health Maintenance Due Date Last Done Comments Fall Risk Assessment 1945 Hepatitis C Screening 1945 Osteoporosis Screening-Bone Density Scan 1945 DTaP/Tdap/Td Vaccine (1 - Tdap) 1957 Hepatitis B Screening 1964 Well Visit 65+ 2011 Pneumococcal vaccine 65+ (2 of 2 - PCV) 05/22/2011 05/22/2010 Zoster Vaccine (2 of 3) 04/16/2012 02/20/2012 Depression Screening 08/26/2022 08/26/2021, 01/04/20 21 Influenza Vaccine (#1) 2024 9, 01/25/2018, 02/04/2017, Additional history exists Insurance MEDICARE [facility] [employer] MEDICARE [facility] [employer] Member Subscriber Plan / Payer (Ef fective 2019-Present) Name:Vicky Vuong Relation to Subscriber:Spouse Name:Harman Vuong Date of :1943 (Home) Address: [address] [place] [id number] Payer ID:[id number] (NAIC) Group ID:[id number] Type:BC ALLIANCE Address: [facility] [id number] [place] [id number] Care Teams Rn L And D Relationship Specialty Start Date End Date Laura Mahoney NP [address] [place] [address] [place] [id number] PCP - General Nurse Practitioner 10/28/23
--- NOTE | 2025-02-22 08:33 | EST_ITS ---
Patient Info Name: Kanchan Vuong Age: 79 years : 1945 Gender: Female Ht: 62 in Wt: 164 lbs BSA: 1.83 m2 HR: 62 bpm BP: 131 / 62 mmHg Exam Date: 02/22/2025 8:33 AM Patient Status: O Admit Date: 02/22/2025 Exam Type: CA stress shelia w NM A regadenoson stress test was performed. Staff Referring Physician: Laura Mahoney Attending Provider: Laura Mahoney Exercise Technologist: Uyen Mauricio Exercise Physician: Moe Salcedo DO Summary 1. 1. Negative lexiscan stress test for ischemic ST changes by ECG criteria. 2. 2. Stable hemodynamics throughout the test. 3. 3. Nuclear scan to follow and will be reported separately. Please correlate with it. 4. 4. Patient informed of the above results. Protocol: Lexiscan Stress ECG Details Stage: REST Duration (min): 1 min : 5 sec HR (bpm): 62 SBP (mmHg): 131 DBP (mmHg): 62 Stage: REST Duration (min): 6 min : 46 sec HR (bpm): 70 SBP (mmHg): 131 DBP (mmHg): 62 Stage: STAGE 1 Duration (min): 1 min : 0 sec HR (bpm): 97 SBP (mmHg): 135 DBP (mmHg): 64 Stage: RECOVERY Duration (min): 1 min : 0 sec HR (bpm): 91 SBP (mmHg): 135 DBP (mmHg): 64 Stage: RECOVERY Duration (min): 2 min : 0 sec HR (bpm): 83 SBP (mmHg): 135 DBP (mmHg): 64 Stage: RECOVERY Duration (min): 3 min : 0 sec HR (bpm): 83 SBP (mmHg): 150 DBP (mmHg): 55 Stage: RECOVERY Duration (min): 4 min : 0 sec HR (bpm): 82 SBP (mmHg): 150 DBP (mmHg): 55 Stage: RECOVERY Duration (min): 5 min : 0 sec HR (bpm): 86 SBP (mmHg): 145 DBP (mmHg): 54 Stage: RECOVERY Duration (min): 6 min : 0 sec HR (bpm): 79 SBP (mmHg): 145 DBP (mmHg): 54 Stage: RECOVERY Duration (min): 7 min : 0 sec HR (bpm): 83 SBP (mmHg): 158 DBP (mmHg): 63 Stage: RECOVERY Duration (min): 8 min : 0 sec HR (bpm): 79 SBP (mmHg): 158 DBP (mmHg): 63 Stage: RECOVERY Duration (min): 9 min : 0 sec HR (bpm): 82 SBP (mmHg): 152 DBP (mmHg): 61 Stage: RECOVERY Duration (min): 9 min : 5 sec HR (bpm): 82 SBP (mmHg): 152 DBP (mmHg): 61 Rest HR: 70 bpm Peak HR: 97 bpm Rest Sys BP: 131 mmHg Peak Sys BP: 158 mmHg Max Pred HR: 142 bpm % Max Pred HR: 68 % Target HR: 121 bpm Max RPP: 15,326 bpm*mmHg Termination Reason: Completed protocol Cardiac Symptoms: Shortness of breath Total Time: 1 min : 0 sec Rest Roth BP: 62 mmHg Peak Roth BP: 63 mmHg Total Dose: 0.4 mg Resting ECG Sinus rhythm, RBBB. Stress ECG No ST changes. Arrhythmias None. Report Signatures
== END 2025-02-22 08:14 | disposition home or self-care (01) ==
PROVIDERS: PCP Internal Medicine; Visit Provider Nurse Practitioner
DX: R06.09 Other forms of dyspnea (principal)
CPT/HCPCS: 78452; 93017; A9502; J2785